=== PATIENT | female | born 1960 | race American Indian/Alaskan Native ===

== ENCOUNTER 2021-09-22 16:34 | Inpatient (IN) | payer MEDICAID ==
[2021-09-23 07:43] LABS: Basophils # (Auto) 0.1 K/mm3 (0.0-0.1); Basophils % (Auto) 0.8 % (0.0-1.8); Eosinophils # (Auto) 0.1 K/mm3 (0.0-0.4); Eosinophils % (Auto) 1.4 % (0.0-4.3); Hematocrit 42.2 % (30.3-42.9); Hemoglobin 13.5 gm/dl (10.1-14.3); Lymphocytes # (Auto) 2.4 K/mm3 (1.2-5.4); Lymphocytes % (Auto) 36.9 % (13.4-35.0); Mean Corpuscular HGB Conc 32 % (30-34); Mean Corpuscular Volume 84 fl (79-97); Monocytes # (Auto) 0.7 K/mm3 (0.0-0.8); Platelet Count 297 K/mm3 (140-440); Red Cell Distribution Width 16.2 % (13.2-15.2)
[2021-09-23 08:01] LABS: Alanine Aminotransferase 16 units/L (7-56); Blood Urea Nitrogen 21 mg/dL (7-17); Calcium 9.2 mg/dL (8.4-10.2); Chol/HDL Ratio 4.32 %; HDL Cholesterol 43 mg/dL (40-59); Hemolysis Index 0; LDL Cholesterol,Direct 113 mg/dL (50-130)
[2021-09-23 08:06] LABS: BUN/Creatinine Ratio 30
--- NOTE | 2021-09-23 09:30 | Consultation ---
History of Present Illness - Reason for Consult Consult date: 09/23/21 DM Requesting physician: MICHELA VILLARREAL - History of Present Illness Patient is a 61 year old female with past medical hx of DM, Heptatis C, HIV, Bipolar disorder, paranoid Schizophreania, admitted to our facility after presenting to an outside facility with suicidal ideation. On my examination, she denies any chest pain, nausea, vomiting, diarrhea, fever. she informs me that she is complaint with her medications and will like to go home. She did not elaborate with me on the suicidal ideation. No other issues reported by nursing staff. Past History Past Medical History: diabetes, hepatitis (C), hypertension, hyperlipidemia, other (AIDS) Past Surgical History: (X1 AND ) Social history: smoking, full code Family history: no significant family history Medications and Allergies Allergies Allergy/AdvReac Type Severity Reaction Status Date / Time fluphenazine [From Prolixin] Allergy Unknown Verified 09/23/21 03:50 haloperidol [From Haldol] Allergy Unknown Verified 09/23/21 03:50 metronidazole [From Flagyl] Allergy Unknown Verified 09/23/21 03:50 Penicillins Allergy Unknown Verified 09/23/21 03:50 Home Medications Medication Instructions Recorded Confirmed Last Taken Type ARIPiprazole [Abilify] 10 mg PO DAILY 09/23/21 09/23/21 Unknown History Aspirin EC [Halfprin EC] 81 mg PO QDAY 09/23/21 09/23/21 Unknown History amLODIPine 10 mg PO DAILY 09/23/21 09/23/21 Unknown History Review of Systems All systems: negative Constitutional: no weight loss, no weight gain, no fever, no sweats, no fatigue, no weakness, no malaise, no lethargy Cardiovascular: no orthopnea, no rapid/irregular heart beat, no syncope, no shortness of breath Respiratory: no cough with sputum, no excessive sputum, no shortness of breath, no dyspnea on exertion Gastrointestinal: no nausea, no vomiting, no diarrhea, no constipation, no hematochezia, no early satiety, no indigestion Musculoskeletal: no neck pain, no arm numbness/tingling, no low back pain, no leg numbness/tingling, no muscle weakness, no muscle cramps, no limitation of motion, no fractures Neurological: no transient paralysis, no tingling, no seizures, no change in speech, no confusion, no double vision, no loss of vision Psychiatric: no memory loss, no change in sleep habits, no insomnia, no hypersomnia, no suicidal ideation, no hopelessness, no anhedonia, no difficulties concentrating Endocrine: no heat intolerance, no excessive thirst, no polyuria, no flushing Allergic/Immunologic: no urticaria Exam - Constitutional General appearance: Present: no acute distress, well-nourished. Absent: mild distress, severe distress - EENT Eyes: Present: PERRL, EOM intact ENT: hearing intact, clear oral mucosa - Neck Neck: Present: supple, normal ROM - Respiratory Respiratory effort: normal Respiratory: bilateral: CTA - Cardiovascular Rhythm: regular Heart Sounds: Present: S1 & S2. Absent: systolic murmur - Extremities Extremities: no ischemia, pulses intact, pulses symmetrical, No edema, normal temperature, Full ROM - Abdominal General gastrointestinal: Present: soft, non-tender, non-distended, normal bowel sounds - Integumentary Integumentary: Present: clear, warm, dry - Musculoskeletal Musculoskeletal: strength equal bilaterally, right sided weakness - Psychiatric Psychiatric: appropriate mood/affect, intact judgment & insight, memory intact, cooperative - Neurologic Neurologic: CNII-XII intact, moves all extremities - Allied Health Allied health notes reviewed: nursing Results - Labs CBC & Chem 7: 09/23/21 07:09 09/23/21 07:09 Labs: Abnormal lab results 09/23/21 09/23/21 09/23/21 Range/Units 06:58 07:09 07:09 MCH 27 L (28-32) pg RDW 16.2 H (13.2-15.2) % Lymph % (Auto) 36.9 H (13.4-35.0) % [place] % (Auto) 10.0 H (0.0-7.3) % BUN 21 H (7-17) mg/dL Glucose 195 H (65-100) mg/dL POC Glucose 197 H (70-105) mg/dL Hemoglobin A1c (4-6) % Alkaline Phosphatase 153 H (35-129) units/L 09/23/21 Range/Units 07:09 MCH (28-32) pg RDW (13.2-15.2) % Lymph % (Auto) (13.4-35.0) % [place] % (Auto) (0.0-7.3) % BUN (7-17) mg/dL Glucose (65-100) mg/dL POC Glucose (70-105) mg/dL Hemoglobin A1c 8.4 H (4-6) % Alkaline Phosphatase (35-129) units/L Assessment and Plan Patient is a 61 year old female with past medical hx of DM, Heptatis C, HIV, Bipolar disorder, paranoid Schizophreania, admitted to our facility after prese nting to an outside facility with suicidal ideation. On my examination, she denies any chest pain, nausea, vomiting, diarrhea, fever. she informs me that she is complaint with her medications and will like to go home. She did not elaborate with me on the suicidal ideation. No other issues reported by nursing staff. DM Hepatitis C HIV/AIDS HTN TOBACCO USE Schizophrenia-Paranoid PLAN Continue supportive care Resume home meds ACCUCHECKS METFORMIN Discussed with Nursing staff to ensure resumption of the HIV/AIDS medications Counselling on Tobacco use discussed in detail for 15 mins, risk associated with Tobacco use discussed in detail and she verbalized understanding DVT/GI prophy
[2021-09-23] MEDS ORDERED: ABACAVIR PO SCH (11:00)
[2021-09-23] MEDS ORDERED: NON-FORMULARY EACH (Omeprazole [Omeprazole] 20 MG Capsule.Dr) PO SCH (11:00)
[2021-09-23] MEDS ORDERED: LAMIVUDI PO SCH (11:00)
[2021-09-23] MEDS ORDERED: DOLUTEGRAVIR PO SCH (11:00)
[2021-09-23] MEDS: ARIPiprazole 10 MG TAB PO SCH (11:18)
[2021-09-23] MEDS: PANTOPRAZOLE 40 MG TAB PO SCH (11:18)
[2021-09-23] MEDS: ASPIRIN EC 81 MG TAB PO SCH (11:18)
[2021-09-23] MEDS: amLODIPine 10 MG TAB PO SCH (11:18)
--- NOTE | 2021-09-23 13:36 | History and Physical Report ---
GP History & Physical - History of Present Illness Date of admission: 09/22/21 Date of Examination: 09/23/21 Reason for Admission: Danger to self, Failure of Outpatient Treatment, Severe anxiety/depression History of Present Illness: HPI: Patient went to ED with superficial cuts on her throat. She stated she was hearing voices to harm herself. The patient was seen today. She is a/o x 3. She says she was admitted to [facility]- psych because people were at her door trying to break in. The patient says "people thought I was hallucinating." She then says "I was hearing voices. But people were really trying to break in." The patient then says "I got frustrated and cut my neck." She shows me superficial cuts on the left side of her neck. She denies SI/HI at present. She says she has a history of Bipolar and Schizophrenia. The patient says she had Abilify Maintenna one week ago. She denies any illicit drug use at present and states the last time she had "crack was in May." PAST PSYCHIATRIC HISTORY: Diagnoses: bipolar and schizophrenia Suicide attempts or Self-harm behavior: Yes Prior psychiatric hospitalizations: Yes Substance Abuse history: Crack Previous psychiatric medications tried: Abilify Maintenna Outpatient treatment: Yes PAST MEDICAL HISTORY: None reported Family Psychiatric History: None reported SOCIAL HISTORY Marital Status: Single Living Arrangements: alone Employment Status: disabled Access to guns/weapons: Denies Education: high school History of Abuse: denies Legal History: denies REVIEW OF SYSTEMS Constitutional: Negative for weight loss ENT: Negative for stridor Respiratory: Negative for cough or hemoptysis All other systems reviewed and are negative MENTAL STATUS EXAMINATION General Appearance: Dressed appropriately Behavior: calm and cooperative Mood: depressed Affect and affective range: congruent with mood Thought Process: illogical Thought content: hallucinations Speech: Normal tone and pace Suicidal Ideation: Denies Homicidal Ideation: Denies Hallucinations: Auditory Delusions: None elicited Insight and Judgment: Limited insight and judgment Memory: Limited Attention: Distracted Orientation: Alert, oriented Assessment Schizophrenia Treatment Plan Patient admitted for inpatient psychiatric evaluation, medication adjustment and close monitoring The patient's behavior, mood, sleep and appetite will be closely monitored. Patient enrolled in individual and group therapeutic sessions and encouraged to attend. Patient provided with a safe and structured environment. Patient's physical health needs will be addressed by the Hospitalist. Hospitalist Consulted Labs including CBC, CMP, Lipid profile and Hemoglobin A1C levels ordered for baseline reference Social Assessment will be completed and the Communications Strategist will work with patient and family to ensure a suitable and safe disposition Medication adjustment will be made as clinically indicated Restarted home medications Usual Wellness Gnosticist/Preservation: - Start Trazodone 50 mg po QHS & 50 mg po QHS PRN between 10 PM & 2 AM for insomnia - Start Melatonin 5 mg po QHS to promote circadian rhythm The patient agreed on the treatment plan, understood the risk, benefit, alternative treatment, potential consequence of no treatment, and gave informed consent. Estimated days: 7 Post hospital care: primary care provider, psychiatric provider Case staffed with Dr. Vásquez Legal Status: Voluntary Reaction to Hospitalization: Accepting Medications and Allergies Allergies Allergy/AdvReac Type Severity Reaction Status Date / Time fluphenazine [From Prolixin] Allergy Unknown Verified 09/23/21 03:50 haloperidol [From Haldol] Allergy Unknown Verified 09/23/21 03:50 metronidazole [From Flagyl] Allergy Unknown Verified 09/23/21 03:50 Penicillins Allergy Unknown Verified 09/23/21 03:50 Home Medications Medication Instructions Recorded Confirmed Last Taken Type ARIPiprazole [Abilify] 10 mg PO DAILY 09/23/21 09/23/21 Unknown History Abacavir/Dolutegravir/Lamivudi 500 mg PO DAILY 09/23/21 09/23/21 Unknown History [Triumeq (Nf)] Aspirin EC [Halfprin EC] 81 mg PO QDAY 09/23/21 09/23/21 Unknown History AtorvaSTATin [Lipitor] 20 mg PO QHS 09/23/21 09/23/21 Unknown History Omeprazole 20 mg PO DAILY 09/23/21 09/23/21 Unknown History Pantoprazole [Protonix] 40 mg PO QDAY 09/23/21 09/23/21 Unknown History amLODIPine 10 mg PO DAILY 09/23/21 09/23/21 Unknown History traZODone [Desyrel] 100 mg PO QHS 09/23/21 09/23/21 Unknown History Active Meds: Active Medications Abacavir Sulfate (Abacavir 300 Mg Tab) 600 mg PO DAILY [facility] Amlodipine Besylate (Amlodipine 10 Mg Tab) 10 mg PO DAILY [facility] Last Admin: 09/23/21 11:18 Dose: 10 mg Aripiprazole (Aripiprazole 10 Mg Tab) 10 mg PO DAILY [facility] Last Admin: 09/23/21 11:18 Dose: 10 mg Aspirin (Aspirin Ec 81 Mg Tab) 81 mg PO QDAY [facility] Last Admin: 09/23/21 11:18 Dose: 81 mg Atorvastatin Calcium (Atorvastatin 20 Mg Tab) 20 mg PO QHS [facility] Dolutegravir Sodium (Dolutegravir 50 Mg Tab) 50 mg PO DAILY [facility] Lamivudine (Lamivudine 150 Mg Tab) 300 mg PO DAILY [facility] Metformin HCl (Metformin 500 Mg Tab) 500 mg PO BIDDIAB [facility] Pantoprazole Sodium (Pantoprazole 40 Mg Tab) 40 mg PO QDAY [facility] Last Admin: 09/23/21 11:18 Dose: 40 mg Trazodone HCl (Trazodone 100 Mg Tab) 100 mg PO QHS [facility] Results - Results Labs/Vitals: Laboratory Last Values WBC 6.5 K/mm3 (4.5-11.0) 09/23/21 07:09 RBC 5.00 M/mm3 (3.65-5.03) 09/23/21 07:09 Hgb 13.5 gm/dl (10.1-14.3) 09/23/21 07:09 Hct 42.2 % (30.3-42.9) 09/23/21 07:09 MCV 84 fl (79-97) 09/23/21 07:09 MCH 27 pg (28-32) L 09/23/21 07:09 MCHC 32 % (30-34) 09/23/21 07:09 RDW 16.2 % (13.2-15.2) H 09/23/21 07:09 Plt Count 297 K/mm3 (140-440) 09/23/21 07:09 Lymph % (Auto) 36.9 % (13.4-35.0) H 09/23/21 07:09 [place] % (Auto) 10.0 % (0.0-7.3) H 09/23/21 07:09 Eos % (Auto) 1.4 % (0.0-4.3) 09/23/21 07:09 Baso % (Auto) 0.8 % (0.0-1.8) 09/23/21 07:09 Lymph # (Auto) 2.4 K/mm3 (1.2-5.4) 09/23/21 07:09 [place] # (Auto) 0.7 K/mm3 (0.0-0.8) 09/23/21 07:09 Eos # (Auto) 0.1 K/mm3 (0.0-0.4) 09/23/21 07:09 Baso # (Auto) 0.1 K/mm3 (0.0-0.1) 09/23/21 07:09 Seg Neutrophils % 50.9 % (40.0-70.0) 09/23/21 07:09 Seg Neutrophils # 3.3 K/mm3 (1.8-7.7) 09/23/21 07:09 Sodium 138 mmol/L (137-145) 09/23/21 07:09 Potassium 4.5 mmol/L (3.6-5.0) 09/23/21 07:09 Chloride 104.4 mmol/L (98-107) 09/23/21 07:09 Carbon Dioxide 26 mmol/L (22-30) 09/23/21 07:09 Anion Gap 12 mmol/L 09/23/21 07:09 BUN 21 mg/dL (7-17) H 09/23/21 07:09 Creatinine 0.7 mg/dL (0.6-1.2) 09/23/21 07:09 Estimated GFR > 60 ml/min 09/23/21 07:09 BUN/Creatinine Ratio 30 % 09/23/21 07:09 Glucose 195 mg/dL (65-100) H 09/23/21 07:09 POC Glucose 176 mg/dL (70-105) H 09/23/21 11:41 Hemoglobin A1c 8.4 % (4-6) H 09/23/21 07:09 Calcium 9.2 mg/dL (8.4-10.2) 09/23/21 07:09 Total Bilirubin 0.30 mg/dL (0.1-1.2) 09/23/21 07:09 AST 14 units/L (5-40) 09/23/21 07:09 ALT 16 units/L (7-56) 09/23/21 07:09 Alkaline Phosphatase 153 units/L (35-129) H 09/23/21 07:09 Total Protein 7.6 g/dL (6.3-8.2) 09/23/21 07:09 Albumin 4.0 g/dL (3.9-5) 09/23/21 07:09 Albumin/Globulin Ratio 1.1 % 09/23/21 07:09 Triglycerides 146 mg/dL (2-149) 09/23/21 07:09 Cholesterol 186 mg/dL (50-199) 09/23/21 07:09 LDL Cholesterol Direct 113 mg/dL (50-130) 09/23/21 07:09 HDL Cholesterol 43 mg/dL (40-59) 09/23/21 07:09 Cholesterol/HDL Ratio 4.32 % 09/23/21 07:09 TSH 3.020 mlU/mL (0.270-4.200) 09/23/21 07:09 Last Vital Signs Temp 98.6 F 09/23/21 08:50 Pulse 63 09/23/21 11:18 Resp 16 09/23/21 08:50 BP 114/77 09/23/21 11:18 Pulse Ox 96 09/23/21 08:50 Physical Examination - Constitutional Vitals: Vital Signs Temp Pulse Resp BP Pulse Ox 98.6 F 63 16 114/77 96 09/23/21 08:50 09/23/21 11:18 09/23/21 08:50 09/23/21 11:18 09/23/21 08:50 Temperature -Last 24 Hours Temperature 98.6 F Mental Status Exam - Vital signs Last Vital Signs Temp 98.6 F 09/23/21 08:50 Pulse 63 09/23/21 11:18 Resp 16 09/23/21 08:50 BP 114/77 09/23/21 11:18 Pulse Ox 96 09/23/21 08:50 Physician Certification - Certification Statement Physician Certification Statement: This is an acknowledgement statement that ANA MARÍA VARGAS is a 61 year old F who requires inpatient psychiatric admission for treatment which could reasonably be expected to improve the patient's condition for Estimated period of time patient will need to remain in the hospital: [ ] Plan for post-hospital care: [ ]
[2021-09-23] MEDS: metFORMIN 500 MG TAB PO SCH (16:53)
[2021-09-23] MEDS ORDERED: lamiVUDine 50 MG/5 ML ORAL LIQD PO ONE (17:00)
[2021-09-23] MEDS: DOLUTEGRAVIR 50 MG TAB PO SCH (17:11)
[2021-09-23] MEDS: ABACAVIR 300 MG TAB PO SCH (17:12)
[2021-09-23] MEDS: traZODone 100 MG TAB PO SCH (22:54)
--- NOTE | 2021-09-24 06:50 | Progress Note ---
Assessment and Plan Assessment and plan: Patient is a 61 year old female with past medical hx of DM, Heptatis C, HIV, Bipolar disorder, paranoid Schizophreania, admitted to our facility after presenting to an outside facility with suicidal ideation. On my examination, she denies any chest pain, nausea, vomiting, diarrhea, fever. she informs me that she is complaint with her medications and will like to go home. She did not elaborate with me on the suicidal ideation. No other issues reported by nursing staff. DM Hepatitis C HIV/AIDS HTN TOBACCO USE Schizophrenia-Paranoid PLAN No change in medical management at this time Continue with plan as outlined by psychiatry Blood sugars are stable continue supportive care Resume home meds ACCUCHECKS METFORMIN Discussed with Nursing staff to ensure resumption of the HIV/AIDS medications Counselling on Tobacco use discussed in detail for 15 mins, risk associated with Tobacco use discussed in detail and she verbalized understanding DVT/GI prophy History Interval history: Patient seen and examined standing and brushing her hair. Does not show any acute distress. No overnight issues reported by nursing staff Hospitalist Physical - Physical exam Narrative exam: VITAL SIGNS: Reviewed. GENERAL: The patient appears normally developed, Vital signs as documented. HEAD: No signs of head trauma. EYES: Pupils are equal. Extraocular motions intact. EARS: Hearing grossly intact. MOUTH: Oropharynx is normal. NECK: No adenopathy, no JVD. CHEST: Chest with clear breath sounds bilaterally. No wheezes, rales, or rhonchi. CARDIAC: Regular rate and rhythm. S1 and S2, without murmurs, gallops, or rubs. VASCULAR: No Edema. Peripheral pulses normal and equal in all extremities. ABDOMEN: Soft, non tender and non distended. No rebound or guarding, and no masses palpated. Bowel Sounds normal. MUSCULOSKELETAL: Good range of motion of all major joints. Extremities without clubbing, cyanosis or edema. NEUROLOGIC EXAM: Alert and oriented x 3 No focal sensory or strength deficits. Speech normal. Follows commands. PSYCHIATRIC: Mood normal. SKIN: detail exam as documented in skin assessment - Constitutional Vitals: Temp Pulse Resp BP Pulse Ox 98.5 F 68 18 125/80 95 09/23/21 20:00 09/23/21 20:00 09/23/21 20:00 09/23/21 20:00 09/23/21 20:00 General appearance: Present: no acute distress, well-nourished. Absent: mild d istress, severe distress Results - Labs CBC & Chem 7: 09/23/21 07:09 09/23/21 07:09 Labs: Laboratory Last Values WBC 6.5 K/mm3 (4.5-11.0) 09/23/21 07:09 RBC 5.00 M/mm3 (3.65-5.03) 09/23/21 07:09 Hgb 13.5 gm/dl (10.1-14.3) 09/23/21 07:09 Hct 42.2 % (30.3-42.9) 09/23/21 07:09 MCV 84 fl (79-97) 09/23/21 07:09 MCH 27 pg (28-32) L 09/23/21 07:09 MCHC 32 % (30-34) 09/23/21 07:09 RDW 16.2 % (13.2-15.2) H 09/23/21 07:09 Plt Count 297 K/mm3 (140-440) 09/23/21 07:09 Lymph % (Auto) 36.9 % (13.4-35.0) H 09/23/21 07:09 [place] % (Auto) 10.0 % (0.0-7.3) H 09/23/21 07:09 Eos % (Auto) 1.4 % (0.0-4.3) 09/23/21 07:09 Baso % (Auto) 0.8 % (0.0-1.8) 09/23/21 07:09 Lymph # (Auto) 2.4 K/mm3 (1.2-5.4) 09/23/21 07:09 [place] # (Auto) 0.7 K/mm3 (0.0-0.8) 09/23/21 07:09 Eos # (Auto) 0.1 K/mm3 (0.0-0.4) 09/23/21 07:09 Baso # (Auto) 0.1 K/mm3 (0.0-0.1) 09/23/21 07:09 Seg Neutrophils % 50.9 % (40.0-70.0) 09/23/21 07:09 Seg Neutrophils # 3.3 K/mm3 (1.8-7.7) 09/23/21 07:09 Sodium 138 mmol/L (137-145) 09/23/21 07:09 Potassium 4.5 mmol/L (3.6-5.0) 09/23/21 07:09 Chloride 104.4 mmol/L (98-107) 09/23/21 07:09 Carbon Dioxide 26 mmol/L (22-30) 09/23/21 07:09 Anion Gap 12 mmol/L 09/23/21 07:09 BUN 21 mg/dL (7-17) H 09/23/21 07:09 Creatinine 0.7 mg/dL (0.6-1.2) 09/23/21 07:09 Estimated GFR > 60 ml/min 09/23/21 07:09 BUN/Creatinine Ratio 30 % 09/23/21 07:09 Glucose 195 mg/dL (65-100) H 09/23/21 07:09 POC Glucose 188 mg/dL (70-105) H 09/23/21 20:40 Hemoglobin A1c 8.4 % (4-6) H 09/23/21 07:09 Calcium 9.2 mg/dL (8.4-10.2) 09/23/21 07:09 Total Bilirubin 0.30 mg/dL (0.1-1.2) 09/23/21 07:09 AST 14 units/L (5-40) 09/23/21 07:09 ALT 16 units/L (7-56) 09/23/21 07:09 Alkaline Phosphatase 153 units/L (35-129) H 09/23/21 07:09 Total Protein 7.6 g/dL (6.3-8.2) 09/23/21 07:09 Albumin 4.0 g/dL (3.9-5) 09/23/21 07:09 Albumin/Globulin Ratio 1.1 % 09/23/21 07:09 Triglycerides 146 mg/dL (2-149) 09/23/21 07:09 Cholesterol 186 mg/dL (50-199) 09/23/21 07:09 LDL Cholesterol Direct 113 mg/dL (50-130) 09/23/21 07:09 HDL Cholesterol 43 mg/dL (40-59) 09/23/21 07:09 Cholesterol/HDL Ratio 4.32 % 09/23/21 07:09 TSH 3.020 mlU/mL (0.270-4.200) 09/23/21 07:09 Aguiar/IV: Voiding Method Toilet Active Medications - Current Medications Current Medications: Generic Name Dose Route Start Last Admin Trade Name Radha PRN Reason Stop Dose Admin Abacavir Sulfate 600 mg 09/23/21 14:00 09/23/21 17:12 Abacavir 300 Mg Tab PO 600 mg DAILY MALDONADO Administration Amlodipine Besylate 10 mg 09/23/21 11:00 09/23/21 11:18 Amlodipine 10 Mg Tab PO 10 mg DAILY [facility] Administration Aripiprazole 10 mg 09/23/21 11:00 09/23/21 11:18 Aripiprazole 10 Mg Tab PO 10 mg DAILY [facility] Administration Aspirin 81 mg 09/23/21 11:00 09/23/21 11:18 Aspirin Ec 81 Mg Tab PO 81 mg QDAY [facility] Administration Atorvastatin Calcium 20 mg 09/23/21 22:00 09/23/21 22:54 Atorvastatin 20 Mg Tab PO 20 mg QHS [facility] Administration Dolutegravir Sodium 50 mg 09/23/21 14:00 09/23/21 17:11 Dolutegravir 50 Mg Tab PO 50 mg DAILY [facility] Administration Lamivudine 300 mg 09/23/21 14:00 09/23/21 17:21 Lamivudine 150 Mg Tab PO Not Given DAILY [facility] Metformin HCl 500 mg 09/23/21 17:00 09/23/21 16:53 Metformin 500 Mg Tab PO 500 mg BIDDIAB [facility] Administration Pantoprazole Sodium 40 mg 09/23/21 11:00 09/23/21 11:18 Pantoprazole 40 Mg Tab PO 40 mg QDAY [facility] Administration Trazodone HCl 100 mg 09/23/21 22:00 09/23/21 22:54 Trazodone 100 Mg Tab PO 100 mg QHS [facility] Administration
[2021-09-24] MEDS: PANTOPRAZOLE 40 MG TAB PO SCH (10:14)
[2021-09-24] MEDS: metFORMIN 500 MG TAB PO SCH ×2 (10:46→23:51)
[2021-09-24] MEDS: amLODIPine 10 MG TAB PO SCH (10:46)
[2021-09-24] MEDS: ASPIRIN EC 81 MG TAB PO SCH (10:46)
[2021-09-24] MEDS: ARIPiprazole 10 MG TAB PO SCH (10:47)
[2021-09-24] MEDS: DOLUTEGRAVIR 50 MG TAB PO SCH (10:48)
--- NOTE | 2021-09-24 10:49 | Progress Note ---
Subjective Date of service: 09/24/21 Principal diagnosis: Schizophrenia Subjective Comment: The patient was seen today. She states to me that she is doing better, and feeling "blessed." She says "I'm ready to go home now." The patient denies SI/HI or hallucinations. However, staff has observed bizarre affect and delusions with this patient believing she is the president. Will increase abilify to treat delusions. REVIEW OF SYSTEMS Constitutional: Negative for weight loss ENT: Negative for stridor Respiratory: Negative for cough or hemoptysis All other systems reviewed and are negative MENTAL STATUS EXAMINATION General Appearance: Dressed appropriately Behavior: calm and cooperative Mood: depressed Affect and affective range: congruent with mood Thought Process: illogical Thought content: hallucinations Speech: Normal tone and pace Suicidal Ideation: Denies Homicidal Ideation: Denies Hallucinations: Auditory Delusions: None elicited Insight and Judgment: Limited insight and judgment Memory: Limited Attention: Distracted Orientation: Alert, oriented Assessment Schizophrenia Treatment Plan Patient admitted for inpatient psychiatric evaluation, medication adjustment and close monitoring The patient's behavior, mood, sleep and appetite will be closely monitored. Patient enrolled in individual and group therapeutic sessions and encouraged to attend. Patient provided with a safe and structured environment. Patient's physical health needs will be addressed by the Hospitalist. Hospitalist Consulted Labs including CBC, CMP, Lipid profile and Hemoglobin A1C levels ordered for baseline reference Social Assessment will be completed and the Wood Turning Lathe Operator will work with patient and family to ensure a suitable and safe disposition Medication adjustment will be made as clinically indicated Increase Abilify 15mg po daily Usual Wellness [facility]/Preservation: - Start Trazodone 50 mg po QHS & 50 mg po QHS PRN between 10 PM & 2 AM for insomnia - Start Melatonin 5 mg po QHS to promote circadian rhythm The patient agreed on the treatment plan, understood the risk, benefit, alternative treatment, potential consequence of no treatment, and gave informed consent. Estimated days: 7 Post hospital care: primary care provider, psychiatric provider Case staffed with Dr. Vásquez Medications and Allergies Allergies Allergy/AdvReac Type Severity Reaction Status Date / Time fluphenazine [From Prolixin] Allergy Unknown Verified 09/23/21 03:50 haloperidol [From Haldol] Allergy Unknown Verified 09/23/21 03:50 metronidazole [From Flagyl] Allergy Unknown Verified 09/23/21 03:50 Penicillins Allergy Unknown Verified 09/23/21 03:50 Home Medications Medication Instructions Recorded Confirmed Last Taken Type ARIPiprazole [Abilify] 10 mg PO DAILY 09/23/21 09/23/21 Unknown History Abacavir/Dolutegravir/Lamivudi 500 mg PO DAILY 09/23/21 09/23/21 Unknown History [Triumeq (Nf)] Aspirin EC [Halfprin EC] 81 mg PO QDAY 09/23/21 09/23/21 Unknown History AtorvaSTATin [Lipitor] 20 mg PO QHS 09/23/21 09/23/21 Unknown History Omeprazole 20 mg PO DAILY 09/23/21 09/23/21 Unknown History Pantoprazole [Protonix] 40 mg PO QDAY 09/23/21 09/23/21 Unknown History amLODIPine 10 mg PO DAILY 09/23/21 09/23/21 Unknown History traZODone [Desyrel] 100 mg PO QHS 09/23/21 09/23/21 Unknown History Active Meds: Active Medications Abacavir Sulfate (Abacavir 300 Mg Tab) 600 mg PO DAILY [facility] Last Admin: 09/23/21 17:12 Dose: 600 mg Amlodipine Besylate (Amlodipine 10 Mg Tab) 10 mg PO DAILY [facility] Last Admin: 09/23/21 11:18 Dose: 10 mg Aripiprazole (Aripiprazole 10 Mg Tab) 10 mg PO DAILY [facility] Last Admin: 09/23/21 11:18 Dose: 10 mg Aspirin (Aspirin Ec 81 Mg Tab) 81 mg PO QDAY [facility] Last Admin: 09/23/21 11:18 Dose: 81 mg Atorvastatin Calcium (Atorvastatin 20 Mg Tab) 20 mg PO QHS [facility] Last Admin: 09/23/21 22:54 Dose: 20 mg Dolutegravir Sodium (Dolutegravir 50 Mg Tab) 50 mg PO DAILY [facility] Last Admin: 09/23/21 17:11 Dose: 50 mg Lamivudine (Lamivudine 150 Mg Tab) 300 mg PO DAILY [facility] Last Admin: 09/23/21 17:21 Dose: Not Given Metformin HCl (Metformin 500 Mg Tab) 500 mg PO BIDDIAB [facility] Last Admin: 09/23/21 16:53 Dose: 500 mg Pantoprazole Sodium (Pantoprazole 40 Mg Tab) 40 mg PO QDAY [facility] Last Admin: 09/23/21 11:18 Dose: 40 mg Trazodone HCl (Trazodone 100 Mg Tab) 100 mg PO QHS [facility] Last Admin: 09/23/21 22:54 Dose: 100 mg Results - Results Labs/Vitals: Laboratory Last Values WBC 6.5 K/mm3 (4.5-11.0) 09/23/21 07:09 RBC 5.00 M/mm3 (3.65-5.03) 09/23/21 07:09 Hgb 13.5 gm/dl (10.1-14.3) 09/23/21 07:09 Hct 42.2 % (30.3-42.9) 09/23/21 07:09 MCV 84 fl (79-97) 09/23/21 07:09 MCH 27 pg (28-32) L 09/23/21 07:09 MCHC 32 % (30-34) 09/23/21 07:09 RDW 16.2 % (13.2-15.2) H 09/23/21 07:09 Plt Count 297 K/mm3 (140-440) 09/23/21 07:09 Lymph % (Auto) 36.9 % (13.4-35.0) H 09/23/21 07:09 [place] % (Auto) 10.0 % (0.0-7.3) H 09/23/21 07:09 Eos % (Auto) 1.4 % (0.0-4.3) 09/23/21 07:09 Baso % (Auto) 0.8 % (0.0-1.8) 09/23/21 07:09 Lymph # (Auto) 2.4 K/mm3 (1.2-5.4) 09/23/21 07:09 [place] # (Auto) 0.7 K/mm3 (0.0-0.8) 09/23/21 07:09 Eos # (Auto) 0.1 K/mm3 (0.0-0.4) 09/23/21 07:09 Baso # (Auto) 0.1 K/mm3 (0.0-0.1) 09/23/21 07:09 Seg Neutrophils % 50.9 % (40.0-70.0) 09/23/21 07:09 Seg Neutrophils # 3.3 K/mm3 (1.8-7.7) 09/23/21 07:09 Sodium 138 mmol/L (137-145) 09/23/21 07:09 Potassium 4.5 mmol/L (3.6-5.0) 09/23/21 07:09 Chloride 104.4 mmol/L (98-107) 09/23/21 07:09 Carbon Dioxide 26 mmol/L (22-30) 09/23/21 07:09 Anion Gap 12 mmol/L 09/23/21 07:09 BUN 21 mg/dL (7-17) H 09/23/21 07:09 Creatinine 0.7 mg/dL (0.6-1.2) 09/23/21 07:09 Estimated GFR > 60 ml/min 09/23/21 07:09 BUN/Creatinine Ratio 30 % 09/23/21 07:09 Glucose 195 mg/dL (65-100) H 09/23/21 07:09 POC Glucose 190 mg/dL (70-105) H 09/24/21 07:49 Hemoglobin A1c 8.4 % (4-6) H 09/23/21 07:09 Calcium 9.2 mg/dL (8.4-10.2) 09/23/21 07:09 Total Bilirubin 0.30 mg/dL (0.1-1.2) 09/23/21 07:09 AST 14 units/L (5-40) 09/23/21 07:09 ALT 16 units/L (7-56) 09/23/21 07:09 Alkaline Phosphatase 153 units/L (35-129) H 09/23/21 07:09 Total Protein 7.6 g/dL (6.3-8.2) 09/23/21 07:09 Albumin 4.0 g/dL (3.9-5) 09/23/21 07:09 Albumin/Globulin Ratio 1.1 % 09/23/21 07:09 Triglycerides 146 mg/dL (2-149) 09/23/21 07:09 Cholesterol 186 mg/dL (50-199) 09/23/21 07:09 LDL Cholesterol Direct 113 mg/dL (50-130) 09/23/21 07:09 HDL Cholesterol 43 mg/dL (40-59) 09/23/21 07:09 Cholesterol/HDL Ratio 4.32 % 09/23/21 07:09 TSH 3.020 mlU/mL (0.270-4.200) 09/23/21 07:09 Last Vital Signs Temp 98.5 F 09/23/21 20:00 Pulse 68 09/23/21 20:00 Resp 18 09/23/21 20:00 BP 125/80 09/23/21 20:00 Pulse Ox 95 09/23/21 20:00
[2021-09-24] MEDS: ABACAVIR 300 MG TAB PO SCH (15:52)
[2021-09-24] MEDS: BENZTROPINE 0.5 MG TAB PO SCH ×2 (15:54→21:13)
[2021-09-24] MEDS: ARIPiprazole 15 MG TAB PO SCH (15:55)
[2021-09-24] MEDS: traZODone 100 MG TAB PO SCH (22:35)
--- NOTE | 2021-09-25 07:15 | Progress Note ---
Assessment and Plan Assessment and plan: Patient is a 61 year old female with past medical hx of DM, Heptatis C, HIV, Bipolar disorder, paranoid Schizophreania, admitted to our facility after presenting to an outside facility with suicidal ideation. On my examination, she denies any chest pain, nausea, vomiting, diarrhea, fever. she informs me that she is complaint with her medications and will like to go home. She did not elaborate with me on the suicidal ideation. No other issues reported by nursing staff. DM Hepatitis C HIV/AIDS HTN TOBACCO USE Schizophrenia-Paranoid Right wrist nodule PLAN Recommend outpatient evaluation of the right wrist nodule. May require imaging study or some form of a biopsy. Patient states is nontender. And he has been present for a few weeks. No change in medical management at this time Continue with plan as outlined by psychiatry Blood sugars are stable continue supportive care Resume home meds ACCUCHECKS METFORMIN Discussed with Nursing staff to ensure resumption of the HIV/AIDS medications Counselling on Tobacco use discussed in detail for 15 mins, risk associated with Tobacco use discussed in detail and she verbalized understanding DVT/GI prophy History Interval history: Patient seen and examined in the day room. Noted a lump on the wrist of the right upper extremity. Hospitalist Physical - Physical exam Narrative exam: VITAL SIGNS: Reviewed. GENERAL: The patient appears normally developed, Vital signs as documented. HEAD: No signs of head trauma. EYES: Pupils are equal. Extraocular motions intact. EARS: Hearing grossly intact. MOUTH: Oropharynx is normal. NECK: No adenopathy, no JVD. CHEST: Chest with clear breath sounds bilaterally. No wheezes, rales, or rhonchi. CARDIAC: Regular rate and rhythm. S1 and S2, without murmurs, gallops, or rubs. VASCULAR: No Edema. Peripheral pulses normal and equal in all extremities. ABDOMEN: Soft, non tender and non distended. No rebound or guarding, and no masses palpated. Bowel Sounds normal. MUSCULOSKELETAL: Soft nodule right dorsum area of the wrist good range of motion of all major joints. Extremities without clubbing, cyanosis or edema. NEUROLOGIC EXAM: Alert and oriented x 3 No focal sensory or strength deficits. Speech normal. Follows commands. PSYCHIATRIC: Mood normal. SKIN: detail exam as documented in skin assessment - Constitutional Vitals: Temp Pulse Resp BP Pulse Ox 97.4 F L 67 18 140/82 100 09/24/21 22:00 09/24/21 22:00 09/24/21 22:00 09/24/21 22:00 09/24/21 22:00 General appearance: Present: no acute distress, well-nourished. Absent: mild distress, severe distress Results - Labs CBC & Chem 7: 09/23/21 07:09 09/23/21 07:09 Labs: Laboratory Last Values WBC 6.5 K/mm3 (4.5-11.0) 09/23/21 07:09 RBC 5.00 M/mm3 (3.65-5.03) 09/23/21 07:09 Hgb 13.5 gm/dl (10.1-14.3) 09/23/21 07:09 Hct 42.2 % (30.3-42.9) 09/23/21 07:09 MCV 84 fl (79-97) 09/23/21 07:09 MCH 27 pg (28-32) L 09/23/21 07:09 MCHC 32 % (30-34) 09/23/21 07:09 RDW 16.2 % (13.2-15.2) H 09/23/21 07:09 Plt Count 297 K/mm3 (140-440) 09/23/21 07:09 Lymph % (Auto) 36.9 % (13.4-35.0) H 09/23/21 07:09 [place] % (Auto) 10.0 % (0.0-7.3) H 09/23/21 07:09 Eos % (Auto) 1.4 % (0.0-4.3) 09/23/21 07:09 Baso % (Auto) 0.8 % (0.0-1.8) 09/23/21 07:09 Lymph # (Auto) 2.4 K/mm3 (1.2-5.4) 09/23/21 07:09 [place] # (Auto) 0.7 K/mm3 (0.0-0.8) 09/23/21 07:09 Eos # (Auto) 0.1 K/mm3 (0.0-0.4) 09/23/21 07:09 Baso # (Auto) 0.1 K/mm3 (0.0-0.1) 09/23/21 07:09 Seg Neutrophils % 50.9 % (40.0-70.0) 09/23/21 07:09 Seg Neutrophils # 3.3 K/mm3 (1.8-7.7) 09/23/21 07:09 Sodium 138 mmol/L (137-145) 09/23/21 07:09 Potassium 4.5 mmol/L (3.6-5.0) 09/23/21 07:09 Chloride 104.4 mmol/L (98-107) 09/23/21 07:09 Carbon Dioxide 26 mmol/L (22-30) 09/23/21 07:09 Anion Gap 12 mmol/L 09/23/21 07:09 BUN 21 mg/dL (7-17) H 09/23/21 07:09 Creatinine 0.7 mg/dL (0.6-1.2) 09/23/21 07:09 Estimated GFR > 60 ml/min 09/23/21 07:09 BUN/Creatinine Ratio 30 % 09/23/21 07:09 Glucose 195 mg/dL (65-100) H 09/23/21 07:09 POC Glucose 207 mg/dL (70-105) H 09/25/21 06:11 Hemoglobin A1c 8.4 % (4-6) H 09/23/21 07:09 Calcium 9.2 mg/dL (8.4-10.2) 09/23/21 07:09 Total Bilirubin 0.30 mg/dL (0.1-1.2) 09/23/21 07:09 AST 14 units/L (5-40) 09/23/21 07:09 ALT 16 units/L (7-56) 09/23/21 07:09 Alkaline Phosphatase 153 units/L (35-129) H 09/23/21 07:09 Total Protein 7.6 g/dL (6.3-8.2) 09/23/21 07:09 Albumin 4.0 g/dL (3.9-5) 09/23/21 07:09 Albumin/Globulin Ratio 1.1 % 09/23/21 07:09 Triglycerides 146 mg/dL (2-149) 09/23/21 07:09 Cholesterol 186 mg/dL (50-199) 09/23/21 07:09 LDL Cholesterol Direct 113 mg/dL (50-130) 09/23/21 07:09 HDL Cholesterol 43 mg/dL (40-59) 09/23/21 07:09 Cholesterol/HDL Ratio 4.32 % 09/23/21 07:09 TSH 3.020 mlU/mL (0.270-4.200) 09/23/21 07:09 [place]/IV: Voiding Method Toilet Active Medications - Current Medications Current Medications: Generic Name Dose Route Start Last Admin Trade Name Freq PRN Reason Stop Dose Admin Abacavir Sulfate 600 mg 09/23/21 14:00 09/24/21 15:52 Abacavir 300 Mg Tab PO 600 mg DAILY [facility] Administration Amlodipine Besylate 10 mg 09/23/21 11:00 09/24/21 10:46 Amlodipine 10 Mg Tab PO 10 mg DAILY [facility] Administration Aripiprazole 15 mg 09/24/21 11:30 09/24/21 15:55 Aripiprazole 15 Mg Tab PO 15 mg QDAY [facility] Administration Aspirin 81 mg 09/23/21 11:00 09/24/21 10:46 Aspirin Ec 81 Mg Tab PO 81 mg QDAY [facility] Administration Atorvastatin Calcium 20 mg 09/23/21 22:00 09/24/21 21:12 Atorvastatin 20 Mg Tab PO 20 mg QHS [facility] Administration Benztropine Mesylate 0.5 mg 09/24/21 11:00 09/24/21 21:13 Benztropine 0.5 Mg Tab PO 0.5 mg BID [facility] Administration Dolutegravir Sodium 50 mg 09/23/21 14:00 09/24/21 10:48 Dolutegravir 50 Mg Tab PO 50 mg DAILY [facility] Administration Lamivudine 300 mg 09/23/21 14:00 09/24/21 15:51 Lamivudine 150 Mg Tab PO 300 mg DAILY [facility] Administration Metformin HCl 500 mg 09/23/21 17:00 09/24/21 23:51 Metformin 500 Mg Tab PO Not Given BIDDIAB [facility] Pantoprazole Sodium 40 mg 09/23/21 11:00 09/24/21 10:14 Pantoprazole 40 Mg Tab PO 40 mg QDAY [facility] Administration Trazodone HCl 100 mg 09/23/21 22:00 09/24/21 22:35 Trazodone 100 Mg Tab PO Not Given QHS [facility]
--- NOTE | 2021-09-25 08:48 | Progress Note ---
Subjective Date of service: 09/25/21 Principal diagnosis: Schizophrenia Subjective Comment: The patient was seen today. She says she's feeling better and "blessed." She denies SI/HI or hallucinations. She is expressing feeling ready to go home. The patient will discharge once her outpatient resources are in place to ensure continuity of her mental wellness. REVIEW OF SYSTEMS Constitutional: Negative for weight loss ENT: Negative for stridor Respiratory: Negative for cough or hemoptysis All other systems reviewed and are negative MENTAL STATUS EXAMINATION General Appearance: Dressed appropriately Behavior: calm and cooperative Mood: depressed Affect and affective range: congruent with mood Thought Process: illogical Thought content: hallucinations Speech: Normal tone and pace Suicidal Ideation: Denies Homicidal Ideation: Denies Hallucinations: Auditory Delusions: None elicited Insight and Judgment: Limited insight and judgment Memory: Limited Attention: Distracted Orientation: Alert, oriented Assessment Schizophrenia Treatment Plan Patient admitted for inpatient psychiatric evaluation, medication adjustment and close monitoring The patient's behavior, mood, sleep and appetite will be closely monitored. Patient enrolled in individual and group therapeutic sessions and encouraged to attend. Patient provided with a safe and structured environment. Patient's physical health needs will be addressed by the Hospitalist. Hospitalist Consulted Labs including CBC, CMP, Lipid profile and Hemoglobin A1C levels ordered for baseline reference Social Assessment will be completed and the Liquor Gallery Operator will work with patient and family to ensure a suitable and safe disposition Medication adjustment will be made as clinically indicated Increase Abilify 15mg po daily yesterday No changes made today Usual Wellness [facility]/Preservation: - Start Trazodone 50 mg po QHS & 50 mg po QHS PRN between 10 PM & 2 AM for insomnia - Start Melatonin 5 mg po QHS to promote circadian rhythm The patient agreed on the treatment plan, understood the risk, benefit, alternative treatment, potential consequence of no treatment, and gave informed consent. Estimated days: 7 Post hospital care: primary care provider, psychiatric provider Case staffed with Dr. Vásquez Medications and Allergies Allergies Allergy/AdvReac Type Severity Reaction Status Date / Time fluphenazine [From Prolixin] Allergy Unknown Verified 09/23/21 03:50 haloperidol [From Haldol] Allergy Unknown Verified 09/23/21 03:50 metronidazole [From Flagyl] Allergy Unknown Verified 09/23/21 03:50 Penicillins Allergy Unknown Verified 09/23/21 03:50 Home Medications Medication Instructions Recorded Confirmed Last Taken Type ARIPiprazole [Abilify] 10 mg PO DAILY 09/23/21 09/23/21 Unknown History Abacavir/Dolutegravir/Lamivudi 500 mg PO DAILY 09/23/21 09/23/21 Unknown History [Triumeq (Nf)] Aspirin EC [Halfprin EC] 81 mg PO QDAY 09/23/21 09/23/21 Unknown History AtorvaSTATin [Lipitor] 20 mg PO QHS 09/23/21 09/23/21 Unknown History Omeprazole 20 mg PO DAILY 09/23/21 09/23/21 Unknown History Pantoprazole [Protonix] 40 mg PO QDAY 09/23/21 09/23/21 Unknown History amLODIPine 10 mg PO DAILY 09/23/21 09/23/21 Unknown History traZODone [Desyrel] 100 mg PO QHS 09/23/21 09/23/21 Unknown History Active Meds: Active Medications Abacavir Sulfate (Abacavir 300 Mg Tab) 600 mg PO DAILY [facility] Last Admin: 09/24/21 15:52 Dose: 600 mg Amlodipine Besylate (Amlodipine 10 Mg Tab) 10 mg PO DAILY [facility] Last Admin: 09/24/21 10:46 Dose: 10 mg Aripiprazole (Aripiprazole 15 Mg Tab) 15 mg PO QDAY [facility] Last Admin: 09/24/21 15:55 Dose: 15 mg Aspirin (Aspirin Ec 81 Mg Tab) 81 mg PO QDAY [facility] Last Admin: 09/24/21 10:46 Dose: 81 mg Atorvastatin Calcium (Atorvastatin 20 Mg Tab) 20 mg PO QHS [facility] Last Admin: 09/24/21 21:12 Dose: 20 mg Benztropine Mesylate (Benztropine 0.5 Mg Tab) 0.5 mg PO BID [facility] Last Admin: 09/24/21 21:13 Dose: 0.5 mg Dolutegravir Sodium (Dolutegravir 50 Mg Tab) 50 mg PO DAILY [facility] Last Admin: 09/24/21 10:48 Dose: 50 mg Lamivudine (Lamivudine 150 Mg Tab) 300 mg PO DAILY [facility] Last Admin: 09/24/21 15:51 Dose: 300 mg Metformin HCl (Metformin 500 Mg Tab) 500 mg PO BIDDIAB [facility] Last Admin: 09/24/21 23:51 Dose: Not Given Pantoprazole Sodium (Pantoprazole 40 Mg Tab) 40 mg PO QDAY [facility] Last Admin: 09/24/21 10:14 Dose: 40 mg Trazodone HCl (Trazodone 100 Mg Tab) 100 mg PO QHS [facility] Last Admin: 09/24/21 22:35 Dose: Not Given Results - Results Labs/Vitals: Laboratory Last Values WBC 6.5 K/mm3 (4.5-11.0) 09/23/21 07:09 RBC 5.00 M/mm3 (3.65-5.03) 09/23/21 07:09 Hgb 13.5 gm/dl (10.1-14.3) 09/23/21 07:09 Hct 42.2 % (30.3-42.9) 09/23/21 07:09 MCV 84 fl (79-97) 09/23/21 07:09 MCH 27 pg (28-32) L 09/23/21 07:09 MCHC 32 % (30-34) 09/23/21 07:09 RDW 16.2 % (13.2-15.2) H 09/23/21 07:09 Plt Count 297 K/mm3 (140-440) 09/23/21 07:09 Lymph % (Auto) 36.9 % (13.4-35.0) H 09/23/21 07:09 [place] % (Auto) 10.0 % (0.0-7.3) H 09/23/21 07:09 Eos % (Auto) 1.4 % (0.0-4.3) 09/23/21 07:09 Baso % (Auto) 0.8 % (0.0-1.8) 09/23/21 07:09 Lymph # (Auto) 2.4 K/mm3 (1.2-5.4) 09/23/21 07:09 [place] # (Auto) 0.7 K/mm3 (0.0-0.8) 09/23/21 07:09 Eos # (Auto) 0.1 K/mm3 (0.0-0.4) 09/23/21 07:09 Baso # (Auto) 0.1 K/mm3 (0.0-0.1) 09/23/21 07:09 Seg Neutrophils % 50.9 % (40.0-70.0) 09/23/21 07:09 Seg Neutrophils # 3.3 K/mm3 (1.8-7.7) 09/23/21 07:09 Sodium 138 mmol/L (137-145) 09/23/21 07:09 Potassium 4.5 mmol/L (3.6-5.0) 09/23/21 07:09 Chloride 104.4 mmol/L (98-107) 09/23/21 07:09 Carbon Dioxide 26 mmol/L (22-30) 09/23/21 07:09 Anion Gap 12 mmol/L 09/23/21 07:09 BUN 21 mg/dL (7-17) H 09/23/21 07:09 Creatinine 0.7 mg/dL (0.6-1.2) 09/23/21 07:09 Estimated GFR > 60 ml/min 09/23/21 07:09 BUN/Creatinine Ratio 30 % 09/23/21 07:09 Glucose 195 mg/dL (65-100) H 09/23/21 07:09 POC Glucose 207 mg/dL (70-105) H 09/25/21 06:11 Hemoglobin A1c 8.4 % (4-6) H 09/23/21 07:09 Calcium 9.2 mg/dL (8.4-10.2) 09/23/21 07:09 Total Bilirubin 0.30 mg/dL (0.1-1.2) 09/23/21 07:09 AST 14 units/L (5-40) 09/23/21 07:09 ALT 16 units/L (7-56) 09/23/21 07:09 Alkaline Phosphatase 153 units/L (35-129) H 09/23/21 07:09 Total Protein 7.6 g/dL (6.3-8.2) 09/23/21 07:09 Albumin 4.0 g/dL (3.9-5) 09/23/21 07:09 Albumin/Globulin Ratio 1.1 % 09/23/21 07:09 Triglycerides 146 mg/dL (2-149) 09/23/21 07:09 Cholesterol 186 mg/dL (50-199) 09/23/21 07:09 LDL Cholesterol Direct 113 mg/dL (50-130) 09/23/21 07:09 HDL Cholesterol 43 mg/dL (40-59) 09/23/21 07:09 Cholesterol/HDL Ratio 4.32 % 09/23/21 07:09 TSH 3.020 mlU/mL (0.270-4.200) 09/23/21 07:09 Last Vital Signs Temp 98.3 F 09/25/21 07:32 Pulse 57 L 09/25/21 07:32 Resp 16 09/25/21 07:32 BP 129/83 09/25/21 07:32 Pulse Ox 99 09/25/21 07:32
[2021-09-25] MEDS: amLODIPine 10 MG TAB PO SCH (10:02)
[2021-09-25] MEDS: ASPIRIN EC 81 MG TAB PO SCH (10:02)
[2021-09-25] MEDS: PANTOPRAZOLE 40 MG TAB PO SCH (10:03)
[2021-09-25] MEDS: ARIPiprazole 15 MG TAB PO SCH (10:03)
[2021-09-25] MEDS: DOLUTEGRAVIR 50 MG TAB PO SCH (10:03)
[2021-09-25] MEDS: ABACAVIR 300 MG TAB PO SCH (10:03)
[2021-09-25] MEDS: BENZTROPINE 0.5 MG TAB PO SCH ×2 (10:03→21:10)
[2021-09-25] MEDS: metFORMIN 500 MG TAB PO SCH ×2 (10:03→17:41)
[2021-09-25] MEDS: traZODone 100 MG TAB PO SCH (21:11)
--- NOTE | 2021-09-26 07:03 | Progress Note ---
Assessment and Plan Assessment and plan: Patient is a 61 year old female with past medical hx of DM, Heptatis C, HIV, Bipolar disorder, paranoid Schizophreania, admitted to our facility after presenting to an outside facility with suicidal ideation. On my examination, she denies any chest pain, nausea, vomiting, diarrhea, fever. she informs me that she is complaint with her medications and will like to go home. She did not elaborate with me on the suicidal ideation. No other issues reported by nursing staff. DM Hepatitis C HIV/AIDS HTN TOBACCO USE Schizophrenia-Paranoid Right wrist nodule PLAN No change in management from medical standpoint Recommend outpatient evaluation of the right wrist nodule. May require imaging study or some form of a biopsy. Patient states is nontender and none mobile. And he has been present for a few weeks. No change in medical management at this time Continue with plan as outlined by psychiatry Blood sugars are stable continue supportive care Resume home meds ACCUCHECKS METFORMIN Discussed with Nursing staff to ensure resumption of the HIV/AIDS medications Counselling on Tobacco use discussed in detail for 15 mins, risk associated with Tobacco use discussed in detail and she verbalized understanding DVT/GI prophy History Interval history: Patient seen and examined in the day room. Thinks lump is getting bigger but when looked at on the same frame as yesterday appears the same Hospitalist Physical - Physical exam Narrative exam: VITAL SIGNS: Reviewed. GENERAL: The patient appears normally developed, Vital signs as documented. HEAD: No signs of head trauma. EYES: Pupils are equal. Extraocular motions intact. EARS: Hearing grossly intact. MOUTH: Oropharynx is normal. NECK: No adenopathy, no JVD. CHEST: Chest with clear breath sounds bilaterally. No wheezes, rales, or rhonchi. CARDIAC: Regular rate and rhythm. S1 and S2, without murmurs, gallops, or rubs. VASCULAR: No Edema. Peripheral pulses normal and equal in all extremities. ABDOMEN: Soft, non tender and non distended. No rebound or guarding, and no masses palpated. Bowel Sounds normal. MUSCULOSKELETAL: Soft nodule right dorsum area of the wrist good range of motion of all major joints. Extremities without clubbing, cyanosis or edema. NEUROLOGIC EXAM: Alert and oriented x 3 No focal sensory or strength deficits. Speech normal. Follows commands. PSYCHIATRIC: Mood normal. SKIN: detail exam as documented in skin assessment - Constitutional Vitals: Temp Pulse Resp BP Pulse Ox 98.6 F 62 17 138/89 99 09/25/21 19:37 09/25/21 19:37 09/25/21 19:37 09/25/21 19:37 09/25/21 19:37 General appearance: Present: no acute distress, well-nourished. Absent: mild distress, severe distress Results - Labs CBC & Chem 7: 09/23/21 07:09 09/23/21 07:09 Labs: Laboratory Last Values WBC 6.5 K/mm3 (4.5-11.0) 09/23/21 07:09 RBC 5.00 M/mm3 (3.65-5.03) 09/23/21 07:09 Hgb 13.5 gm/dl (10.1-14.3) 09/23/21 07:09 Hct 42.2 % (30.3-42.9) 09/23/21 07:09 MCV 84 fl (79-97) 09/23/21 07:09 MCH 27 pg (28-32) L 09/23/21 07:09 MCHC 32 % (30-34) 09/23/21 07:09 RDW 16.2 % (13.2-15.2) H 09/23/21 07:09 Plt Count 297 K/mm3 (140-440) 09/23/21 07:09 Lymph % (Auto) 36.9 % (13.4-35.0) H 09/23/21 07:09 [place] % (Auto) 10.0 % (0.0-7.3) H 09/23/21 07:09 Eos % (Auto) 1.4 % (0.0-4.3) 09/23/21 07:09 Baso % (Auto) 0.8 % (0.0-1.8) 09/23/21 07:09 Lymph # (Auto) 2.4 K/mm3 (1.2-5.4) 09/23/21 07:09 [place] # (Auto) 0.7 K/mm3 (0.0-0.8) 09/23/21 07:09 Eos # (Auto) 0.1 K/mm3 (0.0-0.4) 09/23/21 07:09 Baso # (Auto) 0.1 K/mm3 (0.0-0.1) 09/23/21 07:09 Seg Neutrophils % 50.9 % (40.0-70.0) 09/23/21 07:09 Seg Neutrophils # 3.3 K/mm3 (1.8-7.7) 09/23/21 07:09 Sodium 138 mmol/L (137-145) 09/23/21 07:09 Potassium 4.5 mmol/L (3.6-5.0) 09/23/21 07:09 Chloride 104.4 mmol/L (98-107) 09/23/21 07:09 Carbon Dioxide 26 mmol/L (22-30) 09/23/21 07:09 Anion Gap 12 mmol/L 09/23/21 07:09 BUN 21 mg/dL (7-17) H 09/23/21 07:09 Creatinine 0.7 mg/dL (0.6-1.2) 09/23/21 07:09 Estimated GFR > 60 ml/min 09/23/21 07:09 BUN/Creatinine Ratio 30 % 09/23/21 07:09 Glucose 195 mg/dL (65-100) H 09/23/21 07:09 POC Glucose 163 mg/dL (70-105) H 09/25/21 20:25 Hemoglobin A1c 8.4 % (4-6) H 09/23/21 07:09 Calcium 9.2 mg/dL (8.4-10.2) 09/23/21 07:09 Total Bilirubin 0.30 mg/dL (0.1-1.2) 09/23/21 07:09 AST 14 units/L (5-40) 09/23/21 07:09 ALT 16 units/L (7-56) 09/23/21 07:09 Alkaline Phosphatase 153 units/L (35-129) H 09/23/21 07:09 Total Protein 7.6 g/dL (6.3-8.2) 09/23/21 07:09 Albumin 4.0 g/dL (3.9-5) 09/23/21 07:09 Albumin/Globulin Ratio 1.1 % 09/23/21 07:09 Triglycerides 146 mg/dL (2-149) 09/23/21 07:09 Cholesterol 186 mg/dL (50-199) 09/23/21 07:09 LDL Cholesterol Direct 113 mg/dL (50-130) 09/23/21 07:09 HDL Cholesterol 43 mg/dL (40-59) 09/23/21 07:09 Cholesterol/HDL Ratio 4.32 % 09/23/21 07:09 TSH 3.020 mlU/mL (0.270-4.200) 09/23/21 07:09 Aguiar/IV: Voiding Method Toilet Active Medications - Current Medications Current Medications: Generic Name Dose Route Start Last Admin Trade Name Radha PRN Reason Stop Dose Admin Abacavir Sulfate 600 mg 09/23/21 14:00 09/25/21 10:03 Abacavir 300 Mg Tab PO 600 mg DAILY MALDONADO Administration Amlodipine Besylate 10 mg 09/23/21 11:00 09/25/21 10:02 Amlodipine 10 Mg Tab PO 10 mg DAILY MALDONADO Administration Aripiprazole 15 mg 09/24/21 11:30 09/25/21 10:03 Aripiprazole 15 Mg Tab PO 15 mg QDAY MALDONADO Administration Aspirin 81 mg 09/23/21 11:00 09/25/21 10:02 Aspirin Ec 81 Mg Tab PO 81 mg QDAY [facility]DONADO Administration Atorvastatin Calcium 20 mg 09/23/21 22:00 09/25/21 21:10 Atorvastatin 20 Mg Tab PO 20 mg QHS [facility]DONADO Administration Benztropine Mesylate 0.5 mg 09/24/21 11:00 09/25/21 21:10 Benztropine 0.5 Mg Tab PO 0.5 mg BID [facility]DONADO Administration Dolutegravir Sodium 50 mg 09/23/21 14:00 09/25/21 10:03 Dolutegravir 50 Mg Tab PO 50 mg DAILY [facility] Administration Lamivudine 300 mg 09/23/21 14:00 09/25/21 10:03 Lamivudine 150 Mg Tab PO 300 mg DAILY [facility] Administration Metformin HCl 500 mg 09/23/21 17:00 09/25/21 17:41 Metformin 500 Mg Tab PO 500 mg BIDDIAB [facility]DONADO Administration Pantoprazole Sodium 40 mg 09/23/21 11:00 09/25/21 10:03 Pantoprazole 40 Mg Tab PO 40 mg QDAY [facility]DONADO Administration Trazodone HCl 100 mg 09/23/21 22:00 09/25/21 21:11 Trazodone 100 Mg Tab PO Not Given QHS MALDONADO
--- NOTE | 2021-09-26 08:40 | Progress Note ---
Subjective Date of service: 09/26/21 Principal diagnosis: Schizophrenia Subjective Comment: 09/26:The patient was seen today. She reports doing well and mood is good. She is focused on discharge. She denies SI/HI and denies hallucinations. No changes made today 09/25: The patient was seen today. She says she's feeling better and "blessed." She denies SI/HI or hallucinations. She is expressing feeling ready to go home. The patient will discharge once her outpatient resources are in place to ensure continuity of her mental wellness. REVIEW OF SYSTEMS Constitutional: Negative for weight loss ENT: Negative for stridor Respiratory: Negative for cough or hemoptysis All other systems reviewed and are negative MENTAL STATUS EXAMINATION General Appearance: Dressed appropriately Behavior: calm and cooperative Mood: Ok Affect and affective range: congruent with mood Thought Process: logical Thought content: Reality oriented Speech: Normal tone and pace Suicidal Ideation: Denies Homicidal Ideation: Denies Hallucinations: Denies Delusions: None elicited Insight and Judgment: Limited insight and judgment Memory: Limited Attention: Distracted Orientation: Alert, oriented Assessment Schizophrenia Treatment Plan Patient admitted for inpatient psychiatric evaluation, medication adjustment and close monitoring The patient's behavior, mood, sleep and appetite will be closely monitored. Patient enrolled in individual and group therapeutic sessions and encouraged to attend. Patient provided with a safe and structured environment. Patient's physical health needs will be addressed by the Hospitalist. Hospitalist Consulted Labs including CBC, CMP, Lipid profile and Hemoglobin A1C levels ordered for baseline reference Social Assessment will be completed and the Lead Solutions Architect will work with patient and family to ensure a suitable and safe disposition Medication adjustment will be made as clinically indicated Continue Abilify 15mg po daily. No changes made today Usual Wellness Advent/Preservation: - Start Trazodone 50 mg po QHS & 50 mg po QHS PRN between 10 PM & 2 AM for insomnia - Start Melatonin 5 mg po QHS to promote circadian rhythm The patient agreed on the treatment plan, understood the risk, benefit, alternative treatment, potential consequence of no treatment, and gave informed consent. Estimated days 4 Post hospital care: primary care provider, psychiatric provider Case staffed with Dr. Vásquez Medications and Allergies Medications and Allergies Allergies Allergy/AdvReac Type Severity Reaction Status Date / Time fluphenazine [From Prolixin] Allergy Unknown Verified 09/23/21 03:50 haloperidol [From Haldol] Allergy Unknown Verified 09/23/21 03:50 metronidazole [From Flagyl] Allergy Unknown Verified 09/23/21 03:50 Penicillins Allergy Unknown Verified 09/23/21 03:50 Home Medications Medication Instructions Recorded Confirmed Last Taken Type ARIPiprazole [Abilify] 10 mg PO DAILY 09/23/21 09/23/21 Unknown History Abacavir/Dolutegravir/Lamivudi 500 mg PO DAILY 09/23/21 09/23/21 Unknown History [Triumeq (Nf)] Aspirin EC [Halfprin EC] 81 mg PO QDAY 09/23/21 09/23/21 Unknown History AtorvaSTATin [Lipitor] 20 mg PO QHS 09/23/21 09/23/21 Unknown History Omeprazole 20 mg PO DAILY 09/23/21 09/23/21 Unknown History Pantoprazole [Protonix] 40 mg PO QDAY 09/23/21 09/23/21 Unknown History amLODIPine 10 mg PO DAILY 09/23/21 09/23/21 Unknown History traZODone [Desyrel] 100 mg PO QHS 09/23/21 09/23/21 Unknown History Active Meds: Active Medications Abacavir Sulfate (Abacavir 300 Mg Tab) 600 mg PO DAILY [facility] Last Admin: 09/25/21 10:03 Dose: 600 mg Amlodipine Besylate (Amlodipine 10 Mg Tab) 10 mg PO DAILY [facility] Last Admin: 09/25/21 10:02 Dose: 10 mg Aripiprazole (Aripiprazole 15 Mg Tab) 15 mg PO QDAY [facility] Last Admin: 09/25/21 10:03 Dose: 15 mg Aspirin (Aspirin Ec 81 Mg Tab) 81 mg PO QDAY [facility] Last Admin: 09/25/21 10:02 Dose: 81 mg Atorvastatin Calcium (Atorvastatin 20 Mg Tab) 20 mg PO QHS [facility] Last Admin: 09/25/21 21:10 Dose: 20 mg Benztropine Mesylate (Benztropine 0.5 Mg Tab) 0.5 mg PO BID [facility] Last Admin: 09/25/21 21:10 Dose: 0.5 mg Dolutegravir Sodium (Dolutegravir 50 Mg Tab) 50 mg PO DAILY [facility] Last Admin: 09/25/21 10:03 Dose: 50 mg Lamivudine (Lamivudine 150 Mg Tab) 300 mg PO DAILY [facility] Last Admin: 09/25/21 10:03 Dose: 300 mg Metformin HCl (Metformin 500 Mg Tab) 500 mg PO BIDDIAB [facility] Last Admin: 09/25/21 17:41 Dose: 500 mg Pantoprazole Sodium (Pantoprazole 40 Mg Tab) 40 mg PO QDAY [facility] Last Admin: 09/25/21 10:03 Dose: 40 mg Trazodone HCl (Trazodone 100 Mg Tab) 100 mg PO QHS [facility] Last Admin: 09/25/21 21:11 Dose: Not Given Results - Results Labs/Vitals: Laboratory Last Values WBC 6.5 K/mm3 (4.5-11.0) 09/23/21 07:09 RBC 5.00 M/mm3 (3.65-5.03) 09/23/21 07:09 Hgb 13.5 gm/dl (10.1-14.3) 09/23/21 07:09 Hct 42.2 % (30.3-42.9) 09/23/21 07:09 MCV 84 fl (79-97) 09/23/21 07:09 MCH 27 pg (28-32) L 09/23/21 07:09 MCHC 32 % (30-34) 09/23/21 07:09 RDW 16.2 % (13.2-15.2) H 09/23/21 07:09 Plt Count 297 K/mm3 (140-440) 09/23/21 07:09 Lymph % (Auto) 36.9 % (13.4-35.0) H 09/23/21 07:09 [place] % (Auto) 10.0 % (0.0-7.3) H 09/23/21 07:09 Eos % (Auto) 1.4 % (0.0-4.3) 09/23/21 07:09 Baso % (Auto) 0.8 % (0.0-1.8) 09/23/21 07:09 Lymph # (Auto) 2.4 K/mm3 (1.2-5.4) 09/23/21 07:09 [place] # (Auto) 0.7 K/mm3 (0.0-0.8) 09/23/21 07:09 Eos # (Auto) 0.1 K/mm3 (0.0-0.4) 09/23/21 07:09 Baso # (Auto) 0.1 K/mm3 (0.0-0.1) 09/23/21 07:09 Seg Neutrophils % 50.9 % (40.0-70.0) 09/23/21 07:09 Seg Neutrophils # 3.3 K/mm3 (1.8-7.7) 09/23/21 07:09 Sodium 138 mmol/L (137-145) 09/23/21 07:09 Potassium 4.5 mmol/L (3.6-5.0) 09/23/21 07:09 Chloride 104.4 mmol/L (98-107) 09/23/21 07:09 Carbon Dioxide 26 mmol/L (22-30) 09/23/21 07:09 Anion Gap 12 mmol/L 09/23/21 07:09 BUN 21 mg/dL (7-17) H 09/23/21 07:09 Creatinine 0.7 mg/dL (0.6-1.2) 09/23/21 07:09 Estimated GFR > 60 ml/min 09/23/21 07:09 BUN/Creatinine Ratio 30 % 09/23/21 07:09 Glucose 195 mg/dL (65-100) H 09/23/21 07:09 POC Glucose 189 mg/dL (70-105) H 09/26/21 07:31 Hemoglobin A1c 8.4 % (4-6) H 09/23/21 07:09 Calcium 9.2 mg/dL (8.4-10.2) 09/23/21 07:09 Total Bilirubin 0.30 mg/dL (0.1-1.2) 09/23/21 07:09 AST 14 units/L (5-40) 09/23/21 07:09 ALT 16 units/L (7-56) 09/23/21 07:09 Alkaline Phosphatase 153 units/L (35-129) H 09/23/21 07:09 Total Protein 7.6 g/dL (6.3-8.2) 09/23/21 07:09 Albumin 4.0 g/dL (3.9-5) 09/23/21 07:09 Albumin/Globulin Ratio 1.1 % 09/23/21 07:09 Triglycerides 146 mg/dL (2-149) 09/23/21 07:09 Cholesterol 186 mg/dL (50-199) 09/23/21 07:09 LDL Cholesterol Direct 113 mg/dL (50-130) 09/23/21 07:09 HDL Cholesterol 43 mg/dL (40-59) 09/23/21 07:09 Cholesterol/HDL Ratio 4.32 % 09/23/21 07:09 TSH 3.020 mlU/mL (0.270-4.200) 09/23/21 07:09 Last Vital Signs Temp 98.6 F 09/25/21 19:37 Pulse 62 09/25/21 19:37 Resp 17 09/25/21 19:37 BP 138/89 09/25/21 19:37 Pulse Ox 99 09/25/21 19:37
[2021-09-26] MEDS: metFORMIN 500 MG TAB PO SCH ×2 (10:19→16:47)
[2021-09-26] MEDS: ARIPiprazole 15 MG TAB PO SCH (10:20)
[2021-09-26] MEDS: BENZTROPINE 0.5 MG TAB PO SCH ×2 (10:21→22:14)
[2021-09-26] MEDS: amLODIPine 10 MG TAB PO SCH (10:21)
[2021-09-26] MEDS: PANTOPRAZOLE 40 MG TAB PO SCH (10:22)
[2021-09-26] MEDS: ASPIRIN EC 81 MG TAB PO SCH (10:22)
[2021-09-26] MEDS: DOLUTEGRAVIR 50 MG TAB PO SCH (10:23)
[2021-09-26] MEDS: ABACAVIR 300 MG TAB PO SCH (11:18)
[2021-09-26] MEDS: traZODone 100 MG TAB PO SCH (22:14)
[2021-09-27] MEDS ORDERED: metFORMIN 500 MG TAB PO SCH (07:10)
--- NOTE | 2021-09-27 07:11 | Progress Note ---
Assessment and Plan Assessment and plan: Patient is a 61 year old female with past medical hx of DM, Heptatis C, HIV, Bipolar disorder, paranoid Schizophreania, admitted to our facility after presenting to an outside facility with suicidal ideation. On my examination, she denies any chest pain, nausea, vomiting, diarrhea, fever. she informs me that she is complaint with her medications and will like to go home. She did not elaborate with me on the suicidal ideation. No other issues reported by nursing staff. DM Hepatitis C HIV/AIDS HTN TOBACCO USE Schizophrenia-Paranoid Right wrist nodule PLAN No change in management from medical standpoint Recommend outpatient evaluation of the right wrist nodule. May require imaging study or some form of a biopsy. Patient states is nontender and none mobile. And he has been present for a few weeks. No change in medical management at this time Continue with plan as outlined by psychiatry Increase metformin to 850mg BID Check renal function in am continue supportive care Resume home meds ACCUCHECKS Discussed with Nursing staff to ensure resumption of the HIV/AIDS medications Counselling on Tobacco use discussed in detail for 15 mins, risk associated with Tobacco use discussed in detail and she verbalized understanding DVT/GI prophy History Interval history: Patient seen and examined in the day room, no new concerns Hospitalist Physical - Physical exam Narrative exam: VITAL SIGNS: Reviewed. GENERAL: The patient appears normally developed, Vital signs as documented. HEAD: No signs of head trauma. EYES: Pupils are equal. Extraocular motions intact. EARS: Hearing grossly intact. MOUTH: Oropharynx is normal. NECK: No adenopathy, no JVD. CHEST: Chest with clear breath sounds bilaterally. No wheezes, rales, or rhonchi. CARDIAC: Regular rate and rhythm. S1 and S2, without murmurs, gallops, or rubs. VASCULAR: No Edema. Peripheral pulses normal and equal in all extremities. ABDOMEN: Soft, non tender and non distended. No rebound or guarding, and no masses palpated. Bowel Sounds normal. MUSCULOSKELETAL: Soft nodule right dorsum area of the wrist good range of motion of all major joints. Extremities without clubbing, cyanosis or edema. NEUROLOGIC EXAM: Alert and oriented x 3 No focal sensory or strength deficits. Speech normal. Follows commands. PSYCHIATRIC: Mood normal. SKIN: detail exam as documented in skin assessment - Constitutional Vitals: Temp Pulse Resp BP Pulse Ox 98.3 F 69 17 130/79 98 09/26/21 19:29 09/26/21 19:29 09/26/21 19:29 09/26/21 19:29 09/26/21 19:29 General appearance: Present: no acute distress, well-nourished. Absent: mild distress, severe distress Results - Labs CBC & Chem 7: 09/23/21 07:09 09/23/21 07:09 Labs: Laboratory Last Values WBC 6.5 K/mm3 (4.5-11.0) 09/23/21 07:09 RBC 5.00 M/mm3 (3.65-5.03) 09/23/21 07:09 Hgb 13.5 gm/dl (10.1-14.3) 09/23/21 07:09 Hct 42.2 % (30.3-42.9) 09/23/21 07:09 MCV 84 fl (79-97) 09/23/21 07:09 MCH 27 pg (28-32) L 09/23/21 07:09 MCHC 32 % (30-34) 09/23/21 07:09 RDW 16.2 % (13.2-15.2) H 09/23/21 07:09 Plt Count 297 K/mm3 (140-440) 09/23/21 07:09 Lymph % (Auto) 36.9 % (13.4-35.0) H 09/23/21 07:09 [place] % (Auto) 10.0 % (0.0-7.3) H 09/23/21 07:09 Eos % (Auto) 1.4 % (0.0-4.3) 09/23/21 07:09 Baso % (Auto) 0.8 % (0.0-1.8) 09/23/21 07:09 Lymph # (Auto) 2.4 K/mm3 (1.2-5.4) 09/23/21 07:09 [place] # (Auto) 0.7 K/mm3 (0.0-0.8) 09/23/21 07:09 Eos # (Auto) 0.1 K/mm3 (0.0-0.4) 09/23/21 07:09 Baso # (Auto) 0.1 K/mm3 (0.0-0.1) 09/23/21 07:09 Seg Neutrophils % 50.9 % (40.0-70.0) 09/23/21 07:09 Seg Neutrophils # 3.3 K/mm3 (1.8-7.7) 09/23/21 07:09 Sodium 138 mmol/L (137-145) 09/23/21 07:09 Potassium 4.5 mmol/L (3.6-5.0) 09/23/21 07:09 Chloride 104.4 mmol/L (98-107) 09/23/21 07:09 Carbon Dioxide 26 mmol/L (22-30) 09/23/21 07:09 Anion Gap 12 mmol/L 09/23/21 07:09 BUN 21 mg/dL (7-17) H 09/23/21 07:09 Creatinine 0.7 mg/dL (0.6-1.2) 09/23/21 07:09 Estimated GFR > 60 ml/min 09/23/21 07:09 BUN/Creatinine Ratio 30 % 09/23/21 07:09 Glucose 195 mg/dL (65-100) H 09/23/21 07:09 POC Glucose 216 mg/dL (70-105) H 09/27/21 06:18 Hemoglobin A1c 8.4 % (4-6) H 09/23/21 07:09 Calcium 9.2 mg/dL (8.4-10.2) 09/23/21 07:09 Total Bilirubin 0.30 mg/dL (0.1-1.2) 09/23/21 07:09 AST 14 units/L (5-40) 09/23/21 07:09 ALT 16 units/L (7-56) 09/23/21 07:09 Alkaline Phosphatase 153 units/L (35-129) H 09/23/21 07:09 Total Protein 7.6 g/dL (6.3-8.2) 09/23/21 07:09 Albumin 4.0 g/dL (3.9-5) 09/23/21 07:09 Albumin/Globulin Ratio 1.1 % 09/23/21 07:09 Triglycerides 146 mg/dL (2-149) 09/23/21 07:09 Cholesterol 186 mg/dL (50-199) 09/23/21 07:09 LDL Cholesterol Direct 113 mg/dL (50-130) 09/23/21 07:09 HDL Cholesterol 43 mg/dL (40-59) 09/23/21 07:09 Cholesterol/HDL Ratio 4.32 % 09/23/21 07:09 TSH 3.020 mlU/mL (0.270-4.200) 09/23/21 07:09 Aguiar/IV: Voiding Method Toilet Active Medications - Current Medications Current Medications: Generic Name Dose Route Start Last Admin Trade Name Marcialq PRN Reason Stop Dose Admin Abacavir Sulfate 600 mg 09/23/21 14:00 09/26/21 11:18 Abacavir 300 Mg Tab PO 600 mg DAILY [facility] Administration Amlodipine Besylate 10 mg 09/23/21 11:00 09/26/21 10:21 Amlodipine 10 Mg Tab PO 10 mg DAILY [facility] Administration Aripiprazole 15 mg 09/24/21 11:30 09/26/21 10:20 Aripiprazole 15 Mg Tab PO 15 mg QDAY [facility] Administration Aspirin 81 mg 09/23/21 11:00 09/26/21 10:22 Aspirin Ec 81 Mg Tab PO 81 mg QDAY [facility] Administration Atorvastatin Calcium 20 mg 09/23/21 22:00 09/26/21 22:14 Atorvastatin 20 Mg Tab PO 20 mg QHS [facility] Administration Benztropine Mesylate 0.5 mg 09/24/21 11:00 09/26/21 22:14 Benztropine 0.5 Mg Tab PO 0.5 mg BID [facility] Administration Dolutegravir Sodium 50 mg 09/23/21 14:00 09/26/21 10:23 Dolutegravir 50 Mg Tab PO 50 mg DAILY [facility] Administration Lamivudine 300 mg 09/23/21 14:00 09/26/21 10:22 Lamivudine 150 Mg Tab PO 300 mg DAILY [facility] Administration Metformin HCl 850 mg 09/27/21 07:10 Metformin 500 Mg Tab PO BIDDIAB [facility] Pantoprazole Sodium 40 mg 09/23/21 11:00 09/26/21 10:22 Pantoprazole 40 Mg Tab PO 40 mg QDAY [facility] Administration Trazodone HCl 100 mg 09/23/21 22:00 09/26/21 22:14 Trazodone 100 Mg Tab PO Not Given QHS [facility]
[2021-09-27] MEDS: metFORMIN 850 MG TAB PO SCH ×2 (08:26→16:43)
--- NOTE | 2021-09-27 09:26 | Progress Note ---
Subjective Date of service: 09/27/21 Principal diagnosis: Schizophrenia Subjective Comment: 09/27:The patient was seen today. The patient reports doing well. She reports sleep and appetite as good. She denies SI/HI and denies hallucinations. No changes made today. 09/26:The patient was seen today. She reports doing well and mood is good. She is focused on discharge. She denies SI/HI and denies hallucinations. No changes made today 09/25: The patient was seen today. She says she's feeling better and "blessed." She denies SI/HI or hallucinations. She is expressing feeling ready to go home. The patient will discharge once her outpatient resources are in place to ensure continuity of her mental wellness. REVIEW OF SYSTEMS Constitutional: Negative for weight loss ENT: Negative for stridor Respiratory: Negative for cough or hemoptysis All other systems reviewed and are negative MENTAL STATUS EXAMINATION General Appearance: Dressed appropriately Behavior: calm and cooperative Mood: Ok Affect and affective range: congruent with mood Thought Process: Goal directed Thought content: Reality oriented Speech: Normal tone and pace Suicidal Ideation: Denies Homicidal Ideation: Denies Hallucinations: Denies Delusions: None elicited Insight and Judgment: Limited insight and judgment Memory: Limited Attention: Distracted Orientation: Alert, oriented Assessment Schizophrenia Treatment Plan Patient admitted for inpatient psychiatric evaluation, medication adjustment and close monitoring The patient's behavior, mood, sleep and appetite will be closely monitored. Patient enrolled in individual and group therapeutic sessions and encouraged to attend. Patient provided with a safe and structured environment. Patient's physical health needs will be addressed by the Hospitalist. Hospitalist Consulted Labs including CBC, CMP, Lipid profile and Hemoglobin A1C levels ordered for baseline reference Social Assessment will be completed and the Fiscal Clerk will work with patient and family to ensure a suitable and safe disposition Medication adjustment will be made as clinically indicated Continue Abilify 15mg po daily. No changes made today Usual Wellness Yazdanism/Preservation: - Start Trazodone 50 mg po QHS & 50 mg po QHS PRN between 10 PM & 2 AM for insomnia - Start Melatonin 5 mg po QHS to promote circadian rhythm The patient agreed on the treatment plan, understood the risk, benefit, alternative treatment, potential consequence of no treatment, and gave informed consent. Estimated days 4 Post hospital care: primary care provider, psychiatric provider Case staffed with Dr. Vásquez Medications and Allergies Medications and Allergies Allergies Allergy/AdvReac Type Severity Reaction Status Date / Time fluphenazine [From Prolixin] Allergy Unknown Verified 09/23/21 03:50 haloperidol [From Haldol] Allergy Unknown Verified 09/23/21 03:50 metronidazole [From Flagyl] Allergy Unknown Verified 09/23/21 03:50 Penicillins Allergy Unknown Verified 09/23/21 03:50 Home Medications Medication Instructions Recorded Confirmed Last Taken Type ARIPiprazole [Abilify] 10 mg PO DAILY 09/23/21 09/23/21 Unknown History Abacavir/Dolutegravir/Lamivudi 500 mg PO DAILY 09/23/21 09/23/21 Unknown History [Triumeq (Nf)] Aspirin EC [Halfprin EC] 81 mg PO QDAY 09/23/21 09/23/21 Unknown History AtorvaSTATin [Lipitor] 20 mg PO QHS 09/23/21 09/23/21 Unknown History Omeprazole 20 mg PO DAILY 09/23/21 09/23/21 Unknown History Pantoprazole [Protonix] 40 mg PO QDAY 09/23/21 09/23/21 Unknown History amLODIPine 10 mg PO DAILY 09/23/21 09/23/21 Unknown History traZODone [Desyrel] 100 mg PO QHS 09/23/21 09/23/21 Unknown History Active Meds: Active Medications Abacavir Sulfate (Abacavir 300 Mg Tab) 600 mg PO DAILY [facility] Last Admin: 09/26/21 11:18 Dose: 600 mg Amlodipine Besylate (Amlodipine 10 Mg Tab) 10 mg PO DAILY [facility] Last Admin: 09/26/21 10:21 Dose: 10 mg Aripiprazole (Aripiprazole 15 Mg Tab) 15 mg PO QDAY [facility] Last Admin: 09/26/21 10:20 Dose: 15 mg Aspirin (Aspirin Ec 81 Mg Tab) 81 mg PO QDAY [facility] Last Admin: 09/26/21 10:22 Dose: 81 mg Atorvastatin Calcium (Atorvastatin 20 Mg Tab) 20 mg PO QHS [facility] Last Admin: 09/26/21 22:14 Dose: 20 mg Benztropine Mesylate (Benztropine 0.5 Mg Tab) 0.5 mg PO BID [facility] Last Admin: 09/26/21 22:14 Dose: 0.5 mg Dolutegravir Sodium (Dolutegravir 50 Mg Tab) 50 mg PO DAILY [facility] Last Admin: 09/26/21 10:23 Dose: 50 mg Lamivudine (Lamivudine 150 Mg Tab) 300 mg PO DAILY [facility] Last Admin: 09/26/21 10:22 Dose: 300 mg Metformin HCl (Metformin 850 Mg Tab) 850 mg PO BIDDIAB [facility] Last Admin: 09/27/21 08:26 Dose: 850 mg Pantoprazole Sodium (Pantoprazole 40 Mg Tab) 40 mg PO QDAY [facility] Last Admin: 09/26/21 10:22 Dose: 40 mg Trazodone HCl (Trazodone 100 Mg Tab) 100 mg PO QHS [facility] Last Admin: 09/26/21 22:14 Dose: Not Given Results - Results Labs/Vitals: Laboratory Last Values WBC 6.5 K/mm3 (4.5-11.0) 09/23/21 07:09 RBC 5.00 M/mm3 (3.65-5.03) 09/23/21 07:09 Hgb 13.5 gm/dl (10.1-14.3) 09/23/21 07:09 Hct 42.2 % (30.3-42.9) 09/23/21 07:09 MCV 84 fl (79-97) 09/23/21 07:09 MCH 27 pg (28-32) L 09/23/21 07:09 MCHC 32 % (30-34) 09/23/21 07:09 RDW 16.2 % (13.2-15.2) H 09/23/21 07:09 Plt Count 297 K/mm3 (140-440) 09/23/21 07:09 Lymph % (Auto) 36.9 % (13.4-35.0) H 09/23/21 07:09 [place] % (Auto) 10.0 % (0.0-7.3) H 09/23/21 07:09 Eos % (Auto) 1.4 % (0.0-4.3) 09/23/21 07:09 Baso % (Auto) 0.8 % (0.0-1.8) 09/23/21 07:09 Lymph # (Auto) 2.4 K/mm3 (1.2-5.4) 09/23/21 07:09 [place] # (Auto) 0.7 K/mm3 (0.0-0.8) 09/23/21 07:09 Eos # (Auto) 0.1 K/mm3 (0.0-0.4) 09/23/21 07:09 Baso # (Auto) 0.1 K/mm3 (0.0-0.1) 09/23/21 07:09 Seg Neutrophils % 50.9 % (40.0-70.0) 09/23/21 07:09 Seg Neutrophils # 3.3 K/mm3 (1.8-7.7) 09/23/21 07:09 Sodium 138 mmol/L (137-145) 09/23/21 07:09 Potassium 4.5 mmol/L (3.6-5.0) 09/23/21 07:09 Chloride 104.4 mmol/L (98-107) 09/23/21 07:09 Carbon Dioxide 26 mmol/L (22-30) 09/23/21 07:09 Anion Gap 12 mmol/L 09/23/21 07:09 BUN 21 mg/dL (7-17) H 09/23/21 07:09 Creatinine 0.7 mg/dL (0.6-1.2) 09/23/21 07:09 Estimated GFR > 60 ml/min 09/23/21 07:09 BUN/Creatinine Ratio 30 % 09/23/21 07:09 Glucose 195 mg/dL (65-100) H 09/23/21 07:09 POC Glucose 216 mg/dL (70-105) H 09/27/21 06:18 Hemoglobin A1c 8.4 % (4-6) H 09/23/21 07:09 Calcium 9.2 mg/dL (8.4-10.2) 09/23/21 07:09 Total Bilirubin 0.30 mg/dL (0.1-1.2) 09/23/21 07:09 AST 14 units/L (5-40) 09/23/21 07:09 ALT 16 units/L (7-56) 09/23/21 07:09 Alkaline Phosphatase 153 units/L (35-129) H 09/23/21 07:09 Total Protein 7.6 g/dL (6.3-8.2) 09/23/21 07:09 Albumin 4.0 g/dL (3.9-5) 09/23/21 07:09 Albumin/Globulin Ratio 1.1 % 09/23/21 07:09 Triglycerides 146 mg/dL (2-149) 09/23/21 07:09 Cholesterol 186 mg/dL (50-199) 09/23/21 07:09 LDL Cholesterol Direct 113 mg/dL (50-130) 09/23/21 07:09 HDL Cholesterol 43 mg/dL (40-59) 09/23/21 07:09 Cholesterol/HDL Ratio 4.32 % 09/23/21 07:09 TSH 3.020 mlU/mL (0.270-4.200) 09/23/21 07:09 Last Vital Signs Temp 98.3 F 09/26/21 19:29 Pulse 69 09/26/21 19:29 Resp 17 09/26/21 19:29 BP 130/79 09/26/21 19:29 Pulse Ox 98 09/26/21 19:29
[2021-09-27] MEDS: BENZTROPINE 0.5 MG TAB PO SCH ×2 (09:58→21:53)
[2021-09-27] MEDS: amLODIPine 10 MG TAB PO SCH (09:58)
[2021-09-27] MEDS: DOLUTEGRAVIR 50 MG TAB PO SCH (09:58)
[2021-09-27] MEDS: ASPIRIN EC 81 MG TAB PO SCH (09:58)
[2021-09-27] MEDS: ARIPiprazole 15 MG TAB PO SCH (09:59)
[2021-09-27] MEDS: PANTOPRAZOLE 40 MG TAB PO SCH (10:04)
[2021-09-27] MEDS: ABACAVIR 300 MG TAB PO SCH (10:38)
[2021-09-27] MEDS: traZODone 100 MG TAB PO SCH ×2 (21:53→22:23)
[2021-09-28 06:38] LABS: Blood Urea Nitrogen 15 mg/dL (7-17); Calcium 9.4 mg/dL (8.4-10.2); Hemolysis Index 4
[2021-09-28 06:41] LABS: BUN/Creatinine Ratio 25
[2021-09-28] MEDS: DOLUTEGRAVIR 50 MG TAB PO SCH (09:22)
[2021-09-28] MEDS: BENZTROPINE 0.5 MG TAB PO SCH ×2 (09:22→22:35)
[2021-09-28] MEDS: ABACAVIR 300 MG TAB PO SCH (09:22)
[2021-09-28] MEDS: metFORMIN 850 MG TAB PO SCH ×2 (09:22→16:57)
[2021-09-28] MEDS: ASPIRIN EC 81 MG TAB PO SCH (09:22)
[2021-09-28] MEDS: PANTOPRAZOLE 40 MG TAB PO SCH (09:22)
[2021-09-28] MEDS: ARIPiprazole 15 MG TAB PO SCH (09:22)
[2021-09-28] MEDS: amLODIPine 10 MG TAB PO SCH (09:22)
--- NOTE | 2021-09-28 09:40 | Progress Note ---
Subjective Date of service: 09/28/21 Principal diagnosis: Schizophrenia Subjective Comment: 09/28:The patient was seen today. She is calm and cooperative. The patient reports doing well. She reports sleep and appetite as good. She denies SI/HI and denies hallucinations. No changes made today. 09/27:The patient was seen today. The patient reports doing well. She reports sleep and appetite as good. She denies SI/HI and denies hallucinations. No changes made today. 09/26:The patient was seen today. She reports doing well and mood is good. She is focused on discharge. She denies SI/HI and denies hallucinations. No changes made today 09/25: The patient was seen today. She says she's feeling better and "blessed." She denies SI/HI or hallucinations. She is expressing feeling ready to go home. The patient will discharge once her outpatient resources are in place to ensure continuity of her mental wellness. REVIEW OF SYSTEMS Constitutional: Negative for weight loss ENT: Negative for stridor Respiratory: Negative for cough or hemoptysis All other systems reviewed and are negative MENTAL STATUS EXAMINATION General Appearance: Dressed appropriately Behavior: calm and cooperative Mood: good Affect and affective range: congruent with mood Thought Process: Goal directed Thought content: Reality oriented Speech: Normal tone and pace Suicidal Ideation: Denies Homicidal Ideation: Denies Hallucinations: Denies Delusions: None elicited Insight and Judgment: Limited insight and judgment Memory: Limited Attention: Distracted Orientation: Alert, oriented Assessment Schizophrenia Treatment Plan Patient admitted for inpatient psychiatric evaluation, medication adjustment and close monitoring The patient's behavior, mood, sleep and appetite will be closely monitored. Patient enrolled in individual and group therapeutic sessions and encouraged to attend. Patient provided with a safe and structured environment. Patient's physical health needs will be addressed by the Hospitalist. Hospitalist Consulted Labs including CBC, CMP, Lipid profile and Hemoglobin A1C levels ordered for baseline reference Social Assessment will be completed and the Manager Of Medical will work with patient and family to ensure a suitable and safe disposition Medication adjustment will be made as clinically indicated Continue Abilify 15mg po daily. No changes made today Usual Wellness Taoist/Preservation: - Start Trazodone 50 mg po QHS & 50 mg po QHS PRN between 10 PM & 2 AM for insomnia - Start Melatonin 5 mg po QHS to promote circadian rhythm The patient agreed on the treatment plan, understood the risk, benefit, alternative treatment, potential consequence of no treatment, and gave informed consent. Estimated days 4 Post hospital care: primary care provider, psychiatric provider Case staffed with Dr. Vásquez Medications and Allergies Medications and Allergies Allergies Allergy/AdvReac Type Severity Reaction Status Date / Time fluphenazine [From Prolixin] Allergy Unknown Verified 09/23/21 03:50 haloperidol [From Haldol] Allergy Unknown Verified 09/23/21 03:50 metronidazole [From Flagyl] Allergy Unknown Verified 09/23/21 03:50 Penicillins Allergy Unknown Verified 09/23/21 03:50 Home Medications Medication Instructions Recorded Confirmed Last Taken Type ARIPiprazole [Abilify] 10 mg PO DAILY 09/23/21 09/23/21 Unknown History Abacavir/Dolutegravir/Lamivudi 500 mg PO DAILY 09/23/21 09/23/21 Unknown History [Triumeq (Nf)] Aspirin EC [Halfprin EC] 81 mg PO QDAY 09/23/21 09/23/21 Unknown History AtorvaSTATin [Lipitor] 20 mg PO QHS 09/23/21 09/23/21 Unknown History Omeprazole 20 mg PO DAILY 09/23/21 09/23/21 Unknown History Pantoprazole [Protonix] 40 mg PO QDAY 09/23/21 09/23/21 Unknown History amLODIPine 10 mg PO DAILY 09/23/21 09/23/21 Unknown History traZODone [Desyrel] 100 mg PO QHS 09/23/21 09/23/21 Unknown History Active Meds: Active Medications Abacavir Sulfate (Abacavir 300 Mg Tab) 600 mg PO DAILY [facility] Last Admin: 09/28/21 09:22 Dose: 600 mg Amlodipine Besylate (Amlodipine 10 Mg Tab) 10 mg PO DAILY [facility] Last Admin: 09/28/21 09:22 Dose: 10 mg Aripiprazole (Aripiprazole 15 Mg Tab) 15 mg PO QDAY [facility] Last Admin: 09/28/21 09:22 Dose: 15 mg Aspirin (Aspirin Ec 81 Mg Tab) 81 mg PO QDAY [facility] Last Admin: 09/28/21 09:22 Dose: 81 mg Atorvastatin Calcium (Atorvastatin 20 Mg Tab) 20 mg PO QHS [facility] Last Admin: 09/27/21 21:53 Dose: 20 mg Benztropine Mesylate (Benztropine 0.5 Mg Tab) 0.5 mg PO BID [facility] Last Admin: 09/28/21 09:22 Dose: 0.5 mg Dolutegravir Sodium (Dolutegravir 50 Mg Tab) 50 mg PO DAILY [facility] Last Admin: 09/28/21 09:22 Dose: 50 mg Lamivudine (Lamivudine 150 Mg Tab) 300 mg PO DAILY [facility] Last Admin: 09/28/21 09:22 Dose: 300 mg Metformin HCl (Metformin 850 Mg Tab) 850 mg PO BIDDIAB [facility] Last Admin: 09/28/21 09:22 Dose: 850 mg Pantoprazole Sodium (Pantoprazole 40 Mg Tab) 40 mg PO QDAY [facility] Last Admin: 09/28/21 09:22 Dose: 40 mg Trazodone HCl (Trazodone 100 Mg Tab) 100 mg PO QHS [facility] Last Admin: 09/27/21 22:23 Dose: Not Given Results - Results Labs/Vitals: Laboratory Last Values WBC 6.5 K/mm3 (4.5-11.0) 09/23/21 07:09 RBC 5.00 M/mm3 (3.65-5.03) 09/23/21 07:09 Hgb 13.5 gm/dl (10.1-14.3) 09/23/21 07:09 Hct 42.2 % (30.3-42.9) 09/23/21 07:09 MCV 84 fl (79-97) 09/23/21 07:09 MCH 27 pg (28-32) L 09/23/21 07:09 MCHC 32 % (30-34) 09/23/21 07:09 RDW 16.2 % (13.2-15.2) H 09/23/21 07:09 Plt Count 297 K/mm3 (140-440) 09/23/21 07:09 Lymph % (Auto) 36.9 % (13.4-35.0) H 09/23/21 07:09 [place] % (Auto) 10.0 % (0.0-7.3) H 09/23/21 07:09 Eos % (Auto) 1.4 % (0.0-4.3) 09/23/21 07:09 Baso % (Auto) 0.8 % (0.0-1.8) 09/23/21 07:09 Lymph # (Auto) 2.4 K/mm3 (1.2-5.4) 09/23/21 07:09 [place] # (Auto) 0.7 K/mm3 (0.0-0.8) 09/23/21 07:09 Eos # (Auto) 0.1 K/mm3 (0.0-0.4) 09/23/21 07:09 Baso # (Auto) 0.1 K/mm3 (0.0-0.1) 09/23/21 07:09 Seg Neutrophils % 50.9 % (40.0-70.0) 09/23/21 07:09 Seg Neutrophils # 3.3 K/mm3 (1.8-7.7) 09/23/21 07:09 Sodium 135 mmol/L (137-145) L 09/28/21 05:45 Potassium 4.1 mmol/L (3.6-5.0) 09/28/21 05:45 Chloride 104.2 mmol/L (98-107) 09/28/21 05:45 Carbon Dioxide 22 mmol/L (22-30) 09/28/21 05:45 Anion Gap 13 mmol/L 09/28/21 05:45 BUN 15 mg/dL (7-17) 09/28/21 05:45 Creatinine 0.6 mg/dL (0.6-1.2) 09/28/21 05:45 Estimated GFR > 60 ml/min 09/28/21 05:45 BUN/Creatinine Ratio 25 % 09/28/21 05:45 Glucose 173 mg/dL (65-100) H 09/28/21 05:45 POC Glucose 179 mg/dL (70-105) H 09/28/21 06:02 Hemoglobin A1c 8.4 % (4-6) H 09/23/21 07:09 Calcium 9.4 mg/dL (8.4-10.2) 09/28/21 05:45 Total Bilirubin 0.30 mg/dL (0.1-1.2) 09/23/21 07:09 AST 14 units/L (5-40) 09/23/21 07:09 ALT 16 units/L (7-56) 09/23/21 07:09 Alkaline Phosphatase 153 units/L (35-129) H 09/23/21 07:09 Total Protein 7.6 g/dL (6.3-8.2) 09/23/21 07:09 Albumin 4.0 g/dL (3.9-5) 09/23/21 07:09 Albumin/Globulin Ratio 1.1 % 09/23/21 07:09 Triglycerides 146 mg/dL (2-149) 09/23/21 07:09 Cholesterol 186 mg/dL (50-199) 09/23/21 07:09 LDL Cholesterol Direct 113 mg/dL (50-130) 09/23/21 07:09 HDL Cholesterol 43 mg/dL (40-59) 09/23/21 07:09 Cholesterol/HDL Ratio 4.32 % 09/23/21 07:09 TSH 3.020 mlU/mL (0.270-4.200) 09/23/21 07:09 Last Vital Signs Temp 98.3 F 09/27/21 21:23 Pulse 53 L 09/28/21 09:22 Resp 18 09/27/21 21:23 BP 140/70 09/28/21 09:22 Pulse Ox 98 09/27/21 21:23
--- NOTE | 2021-09-28 10:51 | Progress Note ---
Assessment and Plan Assessment and plan: Patient is a 61 year old female with past medical hx of DM, Heptatis C, HIV, Bipolar disorder, paranoid Schizophreania, admitted to our facility after presenting to an outside facility with suicidal ideation. On my examination, she denies any chest pain, nausea, vomiting, diarrhea, fever. she informs me that she is complaint with her medications and will like to go home. She did not elaborate with me on the suicidal ideation. No other issues reported by nursing staff. DM Hepatitis C HIV/AIDS HTN TOBACCO USE Schizophrenia-Paranoid Right wrist nodule PLAN No change in management from medical standpoint Recommend outpatient evaluation of the right wrist nodule. May require imaging study or some form of a biopsy. Patient states is nontender and none mobile. And he has been present for a few weeks. No change in medical management at this time Continue with plan as outlined by psychiatry Increase metformin to 850mg BID Check renal function in am continue supportive care Resume home meds ACCUCHECKS Discussed with Nursing staff to ensure resumption of the HIV/AIDS medications Counselling on Tobacco use discussed in detail for 15 mins, risk associated with Tobacco use discussed in detail and she verbalized understanding DVT/GI prophy History Interval history: Patient seen and examined in the day room, no new concerns, wants to go home Hospitalist Physical - Physical exam Narrative exam: VITAL SIGNS: Reviewed. GENERAL: The patient appears normally developed, Vital signs as documented. HEAD: No signs of head trauma. EYES: Pupils are equal. Extraocular motions intact. EARS: Hearing grossly intact. MOUTH: Oropharynx is normal. NECK: No adenopathy, no JVD. CHEST: Chest with clear breath sounds bilaterally. No wheezes, rales, or rhonchi. CARDIAC: Regular rate and rhythm. S1 and S2, without murmurs, gallops, or rubs. VASCULAR: No Edema. Peripheral pulses normal and equal in all extremities. ABDOMEN: Soft, non tender and non distended. No rebound or guarding, and no masses palpated. Bowel Sounds normal. MUSCULOSKELETAL: Soft nodule right dorsum area of the wrist good range of motion of all major joints. Extremities without clubbing, cyanosis or edema. NEUROLOGIC EXAM: Alert and oriented x 3 No focal sensory or strength deficits. Speech normal. Follows commands. PSYCHIATRIC: Mood normal. SKIN: detail exam as documented in skin assessment - Constitutional Vitals: Temp Pulse Resp BP Pulse Ox 98.3 F 53 L 18 140/70 98 09/27/21 21:23 09/28/21 09:22 09/27/21 21:23 09/28/21 09:22 09/27/21 21:23 General appearance: Present: no acute distress, well-nourished. Absent: mild distress, severe distress Results - Labs CBC & Chem 7: 09/23/21 07:09 09/28/21 05:45 Labs: Laboratory Last Values WBC 6.5 K/mm3 (4.5-11.0) 09/23/21 07:09 RBC 5.00 M/mm3 (3.65-5.03) 09/23/21 07:09 Hgb 13.5 gm/dl (10.1-14.3) 09/23/21 07:09 Hct 42.2 % (30.3-42.9) 09/23/21 07:09 MCV 84 fl (79-97) 09/23/21 07:09 MCH 27 pg (28-32) L 09/23/21 07:09 MCHC 32 % (30-34) 09/23/21 07:09 RDW 16.2 % (13.2-15.2) H 09/23/21 07:09 Plt Count 297 K/mm3 (140-440) 09/23/21 07:09 Lymph % (Auto) 36.9 % (13.4-35.0) H 09/23/21 07:09 [place] % (Auto) 10.0 % (0.0-7.3) H 09/23/21 07:09 Eos % (Auto) 1.4 % (0.0-4.3) 09/23/21 07:09 Baso % (Auto) 0.8 % (0.0-1.8) 09/23/21 07:09 Lymph # (Auto) 2.4 K/mm3 (1.2-5.4) 09/23/21 07:09 [place] # (Auto) 0.7 K/mm3 (0.0-0.8) 09/23/21 07:09 Eos # (Auto) 0.1 K/mm3 (0.0-0.4) 09/23/21 07:09 Baso # (Auto) 0.1 K/mm3 (0.0-0.1) 09/23/21 07:09 Seg Neutrophils % 50.9 % (40.0-70.0) 09/23/21 07:09 Seg Neutrophils # 3.3 K/mm3 (1.8-7.7) 09/23/21 07:09 Sodium 135 mmol/L (137-145) L 09/28/21 05:45 Potassium 4.1 mmol/L (3.6-5.0) 09/28/21 05:45 Chloride 104.2 mmol/L (98-107) 09/28/21 05:45 Carbon Dioxide 22 mmol/L (22-30) 09/28/21 05:45 Anion Gap 13 mmol/L 09/28/21 05:45 BUN 15 mg/dL (7-17) 09/28/21 05:45 Creatinine 0.6 mg/dL (0.6-1.2) 09/28/21 05:45 Estimated GFR > 60 ml/min 09/28/21 05:45 BUN/Creatinine Ratio 25 % 09/28/21 05:45 Glucose 173 mg/dL (65-100) H 09/28/21 05:45 POC Glucose 179 mg/dL (70-105) H 09/28/21 06:02 Hemoglobin A1c 8.4 % (4-6) H 09/23/21 07:09 Calcium 9.4 mg/dL (8.4-10.2) 09/28/21 05:45 Total Bilirubin 0.30 mg/dL (0.1-1.2) 09/23/21 07:09 AST 14 units/L (5-40) 09/23/21 07:09 ALT 16 units/L (7-56) 09/23/21 07:09 Alkaline Phosphatase 153 units/L (35-129) H 09/23/21 07:09 Total Protein 7.6 g/dL (6.3-8.2) 09/23/21 07:09 Albumin 4.0 g/dL (3.9-5) 09/23/21 07:09 Albumin/Globulin Ratio 1.1 % 09/23/21 07:09 Triglycerides 146 mg/dL (2-149) 09/23/21 07:09 Cholesterol 186 mg/dL (50-199) 09/23/21 07:09 LDL Cholesterol Direct 113 mg/dL (50-130) 09/23/21 07:09 HDL Cholesterol 43 mg/dL (40-59) 09/23/21 07:09 Cholesterol/HDL Ratio 4.32 % 09/23/21 07:09 TSH 3.020 mlU/mL (0.270-4.200) 09/23/21 07:09 Aguiar/IV: Voiding Method Toilet Active Medications - Current Medications Current Medications: Generic Name Dose Route Start Last Admin Trade Name Radha PRN Reason Stop Dose Admin Abacavir Sulfate 600 mg 09/23/21 14:00 09/28/21 09:22 Abacavir 300 Mg Tab PO 600 mg DAILY [facility] Administration Amlodipine Besylate 10 mg 09/23/21 11:00 09/28/21 09:22 Amlodipine 10 Mg Tab PO 10 mg DAILY [facility] Administration Aripiprazole 15 mg 09/24/21 11:30 09/28/21 09:22 Aripiprazole 15 Mg Tab PO 15 mg QDAY [facility] Administration Aspirin 81 mg 09/23/21 11:00 09/28/21 09:22 Aspirin Ec 81 Mg Tab PO 81 mg QDAY [facility] Administration Atorvastatin Calcium 20 mg 09/23/21 22:00 09/27/21 21:53 Atorvastatin 20 Mg Tab PO 20 mg QHS [facility] Administration Benztropine Mesylate 0.5 mg 09/24/21 11:00 09/28/21 09:22 Benztropine 0.5 Mg Tab PO 0.5 mg BID [facility] Administration Dolutegravir Sodium 50 mg 09/23/21 14:00 09/28/21 09:22 Dolutegravir 50 Mg Tab PO 50 mg DAILY [facility] Administration Lamivudine 300 mg 09/23/21 14:00 09/28/21 09:22 Lamivudine 150 Mg Tab PO 300 mg DAILY [facility] Administration Metformin HCl 850 mg 09/27/21 08:00 09/28/21 09:22 Metformin 850 Mg Tab PO 850 mg BIDDIAB [facility] Administration Pantoprazole Sodium 40 mg 09/23/21 11:00 09/28/21 09:22 Pantoprazole 40 Mg Tab PO 40 mg QDAY [facility] Administration Trazodone HCl 100 mg 09/23/21 22:00 09/27/21 22:23 Trazodone 100 Mg Tab PO Not Given QHS [facility]
[2021-09-28] MEDS: traZODone 100 MG TAB PO SCH (22:35)
[2021-09-29] MEDS: metFORMIN 850 MG TAB PO SCH ×2 (08:37→18:12)
--- NOTE | 2021-09-29 09:00 | Progress Note ---
Subjective Date of service: 09/29/21 Principal diagnosis: Schizophrenia Subjective Comment: 09/29: The patient was seen today. The patient reports doing alright. She reports sleep and appetite as good. She denies SI/HI and denies hallucinations. No changes made today. 09/28:The patient was seen today. She is calm and cooperative. The patient reports doing well. She reports sleep and appetite as good. She denies SI/HI and denies hallucinations. No changes made today. 09/27:The patient was seen today. The patient reports doing well. She reports sleep and appetite as good. She denies SI/HI and denies hallucinations. No changes made today. 09/26:The patient was seen today. She reports doing well and mood is good. She is focused on discharge. She denies SI/HI and denies hallucinations. No changes made today 09/25: The patient was seen today. She says she's feeling better and "blessed." She denies SI/HI or hallucinations. She is expressing feeling ready to go home. The patient will discharge once her outpatient resources are in place to ensure continuity of her mental wellness. REVIEW OF SYSTEMS Constitutional: Negative for weight loss ENT: Negative for stridor Respiratory: Negative for cough or hemoptysis All other systems reviewed and are negative MENTAL STATUS EXAMINATION General Appearance: Dressed appropriately Behavior: calm and cooperative Mood: alright Affect and affective range: congruent with mood Thought Process: Goal directed Thought content: Reality oriented Speech: Normal tone and pace Suicidal Ideation: Denies Homicidal Ideation: Denies Hallucinations: Denies Delusions: None elicited Insight and Judgment: Limited insight and judgment Memory: Limited Attention: Distracted Orientation: Alert, oriented Assessment Schizophrenia Treatment Plan Patient admitted for inpatient psychiatric evaluation, medication adjustment and close monitoring The patient's behavior, mood, sleep and appetite will be closely monitored. Patient enrolled in individual and group therapeutic sessions and encouraged to attend. Patient provided with a safe and structured environment. Patient's physical health needs will be addressed by the Hospitalist. Hospitalist Consulted Labs including CBC, CMP, Lipid profile and Hemoglobin A1C levels ordered for baseline reference Social Assessment will be completed and the Enterprise Infrastructure Architect will work with patient and family to ensure a suitable and safe disposition Medication adjustment will be made as clinically indicated Continue Abilify 15mg po daily. No changes made today Usual Wellness [facility]/Preservation: - Start Trazodone 50 mg po QHS & 50 mg po QHS PRN between 10 PM & 2 AM for insomnia - Start Melatonin 5 mg po QHS to promote circadian rhythm The patient agreed on the treatment plan, understood the risk, benefit, alternative treatment, potential consequence of no treatment, and gave informed consent. Estimated days 4 Post hospital care: primary care provider, psychiatric provider Case staffed with Dr. Vásquez Medications and Allergies Medications and Allergies Allergies Allergy/AdvReac Type Severity Reaction Status Date / Time fluphenazine [From Prolixin] Allergy Unknown Verified 09/23/21 03:50 haloperidol [From Haldol] Allergy Unknown Verified 09/23/21 03:50 metronidazole [From Flagyl] Allergy Unknown Verified 09/23/21 03:50 Penicillins Allergy Unknown Verified 09/23/21 03:50 Home Medications Medication Instructions Recorded Confirmed Last Taken Type ARIPiprazole [Abilify] 10 mg PO DAILY 09/23/21 09/23/21 Unknown History Abacavir/Dolutegravir/Lamivudi 500 mg PO DAILY 09/23/21 09/23/21 Unknown History [Triumeq (Nf)] Aspirin EC [Halfprin EC] 81 mg PO QDAY 09/23/21 09/23/21 Unknown History AtorvaSTATin [Lipitor] 20 mg PO QHS 09/23/21 09/23/21 Unknown History Omeprazole 20 mg PO DAILY 09/23/21 09/23/21 Unknown History Pantoprazole [Protonix] 40 mg PO QDAY 09/23/21 09/23/21 Unknown History amLODIPine 10 mg PO DAILY 09/23/21 09/23/21 Unknown History traZODone [Desyrel] 100 mg PO QHS 09/23/21 09/23/21 Unknown History Active Meds: Active Medications Abacavir Sulfate (Abacavir 300 Mg Tab) 600 mg PO DAILY [facility] Last Admin: 09/28/21 09:22 Dose: 600 mg Amlodipine Besylate (Amlodipine 10 Mg Tab) 10 mg PO DAILY [facility] Last Admin: 09/28/21 09:22 Dose: 10 mg Aripiprazole (Aripiprazole 15 Mg Tab) 15 mg PO QDAY [facility] Last Admin: 09/28/21 09:22 Dose: 15 mg Aspirin (Aspirin Ec 81 Mg Tab) 81 mg PO QDAY [facility] Last Admin: 09/28/21 09:22 Dose: 81 mg Atorvastatin Calcium (Atorvastatin 20 Mg Tab) 20 mg PO QHS [facility] Last Admin: 09/28/21 22:35 Dose: 20 mg Benztropine Mesylate (Benztropine 0.5 Mg Tab) 0.5 mg PO BID [facility] Last Admin: 09/28/21 22:35 Dose: 0.5 mg Dolutegravir Sodium (Dolutegravir 50 Mg Tab) 50 mg PO DAILY [facility] Last Admin: 09/28/21 09:22 Dose: 50 mg Lamivudine (Lamivudine 150 Mg Tab) 300 mg PO DAILY [facility] Last Admin: 09/28/21 09:22 Dose: 300 mg Metformin HCl (Metformin 850 Mg Tab) 850 mg PO BIDDIAB [facility] Last Admin: 09/28/21 16:57 Dose: 850 mg Pantoprazole Sodium (Pantoprazole 40 Mg Tab) 40 mg PO QDAY [facility] Last Admin: 09/28/21 09:22 Dose: 40 mg Trazodone HCl (Trazodone 100 Mg Tab) 100 mg PO QHS [facility] Last Admin: 09/28/21 22:35 Dose: 100 mg Results - Results Labs/Vitals: Laboratory Last Values WBC 6.5 K/mm3 (4.5-11.0) 09/23/21 07:09 RBC 5.00 M/mm3 (3.65-5.03) 09/23/21 07:09 Hgb 13.5 gm/dl (10.1-14.3) 09/23/21 07:09 Hct 42.2 % (30.3-42.9) 09/23/21 07:09 MCV 84 fl (79-97) 09/23/21 07:09 MCH 27 pg (28-32) L 09/23/21 07:09 MCHC 32 % (30-34) 09/23/21 07:09 RDW 16.2 % (13.2-15.2) H 09/23/21 07:09 Plt Count 297 K/mm3 (140-440) 09/23/21 07:09 Lymph % (Auto) 36.9 % (13.4-35.0) H 09/23/21 07:09 [place] % (Auto) 10.0 % (0.0-7.3) H 09/23/21 07:09 Eos % (Auto) 1.4 % (0.0-4.3) 09/23/21 07:09 Baso % (Auto) 0.8 % (0.0-1.8) 09/23/21 07:09 Lymph # (Auto) 2.4 K/mm3 (1.2-5.4) 09/23/21 07:09 [place] # (Auto) 0.7 K/mm3 (0.0-0.8) 09/23/21 07:09 Eos # (Auto) 0.1 K/mm3 (0.0-0.4) 09/23/21 07:09 Baso # (Auto) 0.1 K/mm3 (0.0-0.1) 09/23/21 07:09 Seg Neutrophils % 50.9 % (40.0-70.0) 09/23/21 07:09 Seg Neutrophils # 3.3 K/mm3 (1.8-7.7) 09/23/21 07:09 Sodium 135 mmol/L (137-145) L 09/28/21 05:45 Potassium 4.1 mmol/L (3.6-5.0) 09/28/21 05:45 Chloride 104.2 mmol/L (98-107) 09/28/21 05:45 Carbon Dioxide 22 mmol/L (22-30) 09/28/21 05:45 Anion Gap 13 mmol/L 09/28/21 05:45 BUN 15 mg/dL (7-17) 09/28/21 05:45 Creatinine 0.6 mg/dL (0.6-1.2) 09/28/21 05:45 Estimated GFR > 60 ml/min 09/28/21 05:45 BUN/Creatinine Ratio 25 % 09/28/21 05:45 Glucose 173 mg/dL (65-100) H 09/28/21 05:45 POC Glucose 167 mg/dL (70-105) H 09/29/21 06:48 Hemoglobin A1c 8.4 % (4-6) H 09/23/21 07:09 Calcium 9.4 mg/dL (8.4-10.2) 09/28/21 05:45 Total Bilirubin 0.30 mg/dL (0.1-1.2) 09/23/21 07:09 AST 14 units/L (5-40) 09/23/21 07:09 ALT 16 units/L (7-56) 09/23/21 07:09 Alkaline Phosphatase 153 units/L (35-129) H 09/23/21 07:09 Total Protein 7.6 g/dL (6.3-8.2) 09/23/21 07:09 Albumin 4.0 g/dL (3.9-5) 09/23/21 07:09 Albumin/Globulin Ratio 1.1 % 09/23/21 07:09 Triglycerides 146 mg/dL (2-149) 09/23/21 07:09 Cholesterol 186 mg/dL (50-199) 09/23/21 07:09 LDL Cholesterol Direct 113 mg/dL (50-130) 09/23/21 07:09 HDL Cholesterol 43 mg/dL (40-59) 09/23/21 07:09 Cholesterol/HDL Ratio 4.32 % 09/23/21 07:09 TSH 3.020 mlU/mL (0.270-4.200) 09/23/21 07:09 Last Vital Signs Temp 98.3 F 09/29/21 06:12 Pulse 54 L 09/29/21 06:12 Resp 18 09/29/21 06:12 BP 132/69 09/29/21 06:12 Pulse Ox 96 09/29/21 06:12
--- NOTE | 2021-09-29 10:16 | Progress Note ---
Assessment and Plan Assessment and plan: Patient is a 61 year old female with past medical hx of DM, Heptatis C, HIV, Bipolar disorder, paranoid Schizophreania, admitted to our facility after presenting to an outside facility with suicidal ideation. On my examination, she denies any chest pain, nausea, vomiting, diarrhea, fever. she informs me that she is complaint with her medications and will like to go home. She did not elaborate with me on the suicidal ideation. No other issues reported by nursing staff. DM Hepatitis C HIV/AIDS HTN TOBACCO USE Schizophrenia-Paranoid Right wrist nodule PLAN No change in management from medical standpoint Recommend outpatient evaluation of the right wrist nodule. May require imaging study or some form of a biopsy. Patient states is nontender and none mobile. And he has been present for a few weeks. No change in medical management at this time Continue with plan as outlined by psychiatry Increase metformin to 850mg BID Check renal function in am continue supportive care Resume home meds ACCUCHECKS Discussed with Nursing staff to ensure resumption of the HIV/AIDS medications Counselling on Tobacco use discussed in detail for 15 mins, risk associated with Tobacco use discussed in detail and she verbalized understanding DVT/GI prophy History Interval history: Patient seen and examined in the day room, no new concerns, asking when she can go home Hospitalist Physical - Physical exam Narrative exam: VITAL SIGNS: Reviewed. GENERAL: The patient appears normally developed, Vital signs as documented. HEAD: No signs of head trauma. EYES: Pupils are equal. Extraocular motions intact. EARS: Hearing grossly intact. MOUTH: Oropharynx is normal. NECK: No adenopathy, no JVD. CHEST: Chest with clear breath sounds bilaterally. No wheezes, rales, or rhonchi. CARDIAC: Regular rate and rhythm. S1 and S2, without murmurs, gallops, or rubs. VASCULAR: No Edema. Peripheral pulses normal and equal in all extremities. ABDOMEN: Soft, non tender and non distended. No rebound or guarding, and no masses palpated. Bowel Sounds normal. MUSCULOSKELETAL: Soft nodule right dorsum area of the wrist good range of motion of all major joints. Extremities without clubbing, cyanosis or edema. NEUROLOGIC EXAM: Alert and oriented x 3 No focal sensory or strength deficits. Speech normal. Follows commands. PSYCHIATRIC: Mood normal. SKIN: detail exam as documented in skin assessment - Constitutional Vitals: Temp Pulse Resp BP Pulse Ox 98.3 F 54 L 18 132/69 96 09/29/21 06:12 09/29/21 06:12 09/29/21 06:12 09/29/21 06:12 09/29/21 06:12 General appearance: Present: no acute distress, well-nourished. Absent: mild distress, severe distress Results - Labs CBC & Chem 7: 09/23/21 07:09 09/28/21 05:45 Labs: Laboratory Last Values WBC 6.5 K/mm3 (4.5-11.0) 09/23/21 07:09 RBC 5.00 M/mm3 (3.65-5.03) 09/23/21 07:09 Hgb 13.5 gm/dl (10.1-14.3) 09/23/21 07:09 Hct 42.2 % (30.3-42.9) 09/23/21 07:09 MCV 84 fl (79-97) 09/23/21 07:09 MCH 27 pg (28-32) L 09/23/21 07:09 MCHC 32 % (30-34) 09/23/21 07:09 RDW 16.2 % (13.2-15.2) H 09/23/21 07:09 Plt Count 297 K/mm3 (140-440) 09/23/21 07:09 Lymph % (Auto) 36.9 % (13.4-35.0) H 09/23/21 07:09 [place] % (Auto) 10.0 % (0.0-7.3) H 09/23/21 07:09 Eos % (Auto) 1.4 % (0.0-4.3) 09/23/21 07:09 Baso % (Auto) 0.8 % (0.0-1.8) 09/23/21 07:09 Lymph # (Auto) 2.4 K/mm3 (1.2-5.4) 09/23/21 07:09 [place] # (Auto) 0.7 K/mm3 (0.0-0.8) 09/23/21 07:09 Eos # (Auto) 0.1 K/mm3 (0.0-0.4) 09/23/21 07:09 Baso # (Auto) 0.1 K/mm3 (0.0-0.1) 09/23/21 07:09 Seg Neutrophils % 50.9 % (40.0-70.0) 09/23/21 07:09 Seg Neutrophils # 3.3 K/mm3 (1.8-7.7) 09/23/21 07:09 Sodium 135 mmol/L (137-145) L 09/28/21 05:45 Potassium 4.1 mmol/L (3.6-5.0) 09/28/21 05:45 Chloride 104.2 mmol/L (98-107) 09/28/21 05:45 Carbon Dioxide 22 mmol/L (22-30) 09/28/21 05:45 Anion Gap 13 mmol/L 09/28/21 05:45 BUN 15 mg/dL (7-17) 09/28/21 05:45 Creatinine 0.6 mg/dL (0.6-1.2) 09/28/21 05:45 Estimated GFR > 60 ml/min 09/28/21 05:45 BUN/Creatinine Ratio 25 % 09/28/21 05:45 Glucose 173 mg/dL (65-100) H 09/28/21 05:45 POC Glucose 167 mg/dL (70-105) H 09/29/21 06:48 Hemoglobin A1c 8.4 % (4-6) H 09/23/21 07:09 Calcium 9.4 mg/dL (8.4-10.2) 09/28/21 05:45 Total Bilirubin 0.30 mg/dL (0.1-1.2) 09/23/21 07:09 AST 14 units/L (5-40) 09/23/21 07:09 ALT 16 units/L (7-56) 09/23/21 07:09 Alkaline Phosphatase 153 units/L (35-129) H 09/23/21 07:09 Total Protein 7.6 g/dL (6.3-8.2) 09/23/21 07:09 Albumin 4.0 g/dL (3.9-5) 09/23/21 07:09 Albumin/Globulin Ratio 1.1 % 09/23/21 07:09 Triglycerides 146 mg/dL (2-149) 09/23/21 07:09 Cholesterol 186 mg/dL (50-199) 09/23/21 07:09 LDL Cholesterol Direct 113 mg/dL (50-130) 09/23/21 07:09 HDL Cholesterol 43 mg/dL (40-59) 09/23/21 07:09 Cholesterol/HDL Ratio 4.32 % 09/23/21 07:09 TSH 3.020 mlU/mL (0.270-4.200) 09/23/21 07:09 Aguiar/IV: Voiding Method Toilet Active Medications - Current Medications Current Medications: Generic Name Dose Route Start Last Admin Trade Name Radha PRN Reason Stop Dose Admin Abacavir Sulfate 600 mg 09/23/21 14:00 09/28/21 09:22 Abacavir 300 Mg Tab PO 600 mg DAILY [facility] Administration Amlodipine Besylate 10 mg 09/23/21 11:00 09/28/21 09:22 Amlodipine 10 Mg Tab PO 10 mg DAILY [facility] Administration Aripiprazole 15 mg 09/24/21 11:30 09/28/21 09:22 Aripiprazole 15 Mg Tab PO 15 mg QDAY [facility] Administration Aspirin 81 mg 09/23/21 11:00 09/28/21 09:22 Aspirin Ec 81 Mg Tab PO 81 mg QDAY [facility] Administration Atorvastatin Calcium 20 mg 09/23/21 22:00 09/28/21 22:35 Atorvastatin 20 Mg Tab PO 20 mg QHS [facility] Administration Benztropine Mesylate 0.5 mg 09/24/21 11:00 09/28/21 22:35 Benztropine 0.5 Mg Tab PO 0.5 mg BID [facility] Administration Dolutegravir Sodium 50 mg 09/23/21 14:00 09/28/21 09:22 Dolutegravir 50 Mg Tab PO 50 mg DAILY [facility] Administration Lamivudine 300 mg 09/23/21 14:00 09/28/21 09:22 Lamivudine 150 Mg Tab PO 300 mg DAILY [facility] Administration Metformin HCl 850 mg 09/27/21 08:00 09/28/21 16:57 Metformin 850 Mg Tab PO 850 mg BIDDIAB [facility] Administration Pantoprazole Sodium 40 mg 09/23/21 11:00 09/28/21 09:22 Pantoprazole 40 Mg Tab PO 40 mg QDAY [facility] Administration Trazodone HCl 100 mg 09/23/21 22:00 09/28/21 22:35 Trazodone 100 Mg Tab PO 100 mg QHS [facility] Administration
[2021-09-29] MEDS: ABACAVIR 300 MG TAB PO SCH (11:14)
[2021-09-29] MEDS: ARIPiprazole 15 MG TAB PO SCH (11:37)
[2021-09-29] MEDS: amLODIPine 10 MG TAB PO SCH (11:38)
[2021-09-29] MEDS: BENZTROPINE 0.5 MG TAB PO SCH ×2 (11:38→21:24)
[2021-09-29] MEDS: ASPIRIN EC 81 MG TAB PO SCH (11:38)
[2021-09-29] MEDS: PANTOPRAZOLE 40 MG TAB PO SCH (11:39)
[2021-09-29] MEDS: DOLUTEGRAVIR 50 MG TAB PO SCH (11:39)
[2021-09-29] MEDS: traZODone 100 MG TAB PO SCH ×2 (21:24→21:27)
[2021-09-30 08:03] VITALS: BP 128/73
--- NOTE | 2021-09-30 08:29 | Progress Note ---
Assessment and Plan Assessment and plan: Patient is a 61 year old female with past medical hx of DM, Heptatis C, HIV, Bipolar disorder, paranoid Schizophreania, admitted to our facility after presenting to an outside facility with suicidal ideation. On my examination, she denies any chest pain, nausea, vomiting, diarrhea, fever. she informs me that she is complaint with her medications and will like to go home. She did not elaborate with me on the suicidal ideation. No other issues reported by nursing staff. DM Hepatitis C HIV/AIDS HTN TOBACCO USE Schizophrenia-Paranoid Right wrist nodule PLAN No change in management from medical standpoint Recommend outpatient evaluation of the right wrist nodule. May require imaging study or some form of a biopsy. Patient states is nontender and none mobile. And he has been present for a few weeks. No change in medical management at this time Continue with plan as outlined by psychiatry Increase metformin to 850mg BID Check renal function in am continue supportive care Resume home meds ACCUCHECKS Discussed with Nursing staff to ensure resumption of the HIV/AIDS medications Counselling on Tobacco use discussed in detail for 15 mins, risk associated with Tobacco use discussed in detail and she verbalized understanding DVT/GI prophy History Interval history: No acute complaints. Paitent very happy to be discharged. Hospitalist Physical - Physical exam Narrative exam: VITAL SIGNS: Reviewed. GENERAL: The patient appears normally developed, Vital signs as documented. HEAD: No signs of head trauma. EYES: Pupils are equal. Extraocular motions intact. EARS: Hearing grossly intact. MOUTH: Oropharynx is normal. NECK: No adenopathy, no JVD. CHEST: Chest with clear breath sounds bilaterally. No wheezes, rales, or rhonchi. CARDIAC: Regular rate and rhythm. S1 and S2, without murmurs, gallops, or rubs. VASCULAR: No Edema. Peripheral pulses normal and equal in all extremities. ABDOMEN: Soft, non tender and non distended. No rebound or guarding, and no masses palpated. Bowel Sounds normal. MUSCULOSKELETAL: Soft nodule right dorsum area of the wrist good range of motion of all major joints. Extremities without clubbing, cyanosis or edema. NEUROLOGIC EXAM: Alert and oriented x 3 No focal sensory or strength deficits. Speech normal. Follows commands. PSYCHIATRIC: Mood normal. SKIN: detail exam as documented in skin assessment - Constitutional Vitals: Temp Pulse Resp BP Pulse Ox 98.1 F 52 L 18 128/73 98 09/30/21 07:36 09/30/21 07:36 09/30/21 07:36 09/30/21 07:36 09/30/21 07:36 General appearance: Present: no acute distress, well-nourished. Absent: mild distress, severe distress Results - Labs CBC & Chem 7: 09/23/21 07:09 09/28/21 05:45 Labs: Laboratory Last Values WBC 6.5 K/mm3 (4.5-11.0) 09/23/21 07:09 RBC 5.00 M/mm3 (3.65-5.03) 09/23/21 07:09 Hgb 13.5 gm/dl (10.1-14.3) 09/23/21 07:09 Hct 42.2 % (30.3-42.9) 09/23/21 07:09 MCV 84 fl (79-97) 09/23/21 07:09 MCH 27 pg (28-32) L 09/23/21 07:09 MCHC 32 % (30-34) 09/23/21 07:09 RDW 16.2 % (13.2-15.2) H 09/23/21 07:09 Plt Count 297 K/mm3 (140-440) 09/23/21 07:09 Lymph % (Auto) 36.9 % (13.4-35.0) H 09/23/21 07:09 [place] % (Auto) 10.0 % (0.0-7.3) H 09/23/21 07:09 Eos % (Auto) 1.4 % (0.0-4.3) 09/23/21 07:09 Baso % (Auto) 0.8 % (0.0-1.8) 09/23/21 07:09 Lymph # (Auto) 2.4 K/mm3 (1.2-5.4) 09/23/21 07:09 [place] # (Auto) 0.7 K/mm3 (0.0-0.8) 09/23/21 07:09 Eos # (Auto) 0.1 K/mm3 (0.0-0.4) 09/23/21 07:09 Baso # (Auto) 0.1 K/mm3 (0.0-0.1) 09/23/21 07:09 Seg Neutrophils % 50.9 % (40.0-70.0) 09/23/21 07:09 Seg Neutrophils # 3.3 K/mm3 (1.8-7.7) 09/23/21 07:09 Sodium 135 mmol/L (137-145) L 09/28/21 05:45 Potassium 4.1 mmol/L (3.6-5.0) 09/28/21 05:45 Chloride 104.2 mmol/L (98-107) 09/28/21 05:45 Carbon Dioxide 22 mmol/L (22-30) 09/28/21 05:45 Anion Gap 13 mmol/L 09/28/21 05:45 BUN 15 mg/dL (7-17) 09/28/21 05:45 Creatinine 0.6 mg/dL (0.6-1.2) 09/28/21 05:45 Estimated GFR > 60 ml/min 09/28/21 05:45 BUN/Creatinine Ratio 25 % 09/28/21 05:45 Glucose 173 mg/dL (65-100) H 09/28/21 05:45 POC Glucose 162 mg/dL (70-105) H 09/30/21 06:10 Hemoglobin A1c 8.4 % (4-6) H 09/23/21 07:09 Calcium 9.4 mg/dL (8.4-10.2) 09/28/21 05:45 Total Bilirubin 0.30 mg/dL (0.1-1.2) 09/23/21 07:09 AST 14 units/L (5-40) 09/23/21 07:09 ALT 16 units/L (7-56) 09/23/21 07:09 Alkaline Phosphatase 153 units/L (35-129) H 09/23/21 07:09 Total Protein 7.6 g/dL (6.3-8.2) 09/23/21 07:09 Albumin 4.0 g/dL (3.9-5) 09/23/21 07:09 Albumin/Globulin Ratio 1.1 % 09/23/21 07:09 Triglycerides 146 mg/dL (2-149) 09/23/21 07:09 Cholesterol 186 mg/dL (50-199) 09/23/21 07:09 LDL Cholesterol Direct 113 mg/dL (50-130) 09/23/21 07:09 HDL Cholesterol 43 mg/dL (40-59) 09/23/21 07:09 Cholesterol/HDL Ratio 4.32 % 09/23/21 07:09 TSH 3.020 mlU/mL (0.270-4.200) 09/23/21 07:09 Aguiar/IV: Voiding Method Toilet Active Medications - Current Medications Current Medications: Generic Name Dose Route Start Last Admin Trade Name Marcialq PRN Reason Stop Dose Admin Abacavir Sulfate 600 mg 09/23/21 14:00 09/29/21 11:14 Abacavir 300 Mg Tab PO Not Given DAILY [facility] Amlodipine Besylate 10 mg 09/23/21 11:00 09/29/21 11:38 Amlodipine 10 Mg Tab PO 10 mg DAILY [facility] Administration Aripiprazole 15 mg 09/24/21 11:30 09/29/21 11:37 Aripiprazole 15 Mg Tab PO 15 mg QDAY [facility] Administration Aspirin 81 mg 09/23/21 11:00 09/29/21 11:38 Aspirin Ec 81 Mg Tab PO 81 mg QDAY [facility] Administration Atorvastatin Calcium 20 mg 09/23/21 22:00 09/29/21 21:24 Atorvastatin 20 Mg Tab PO 20 mg QHS [facility] Administration Benztropine Mesylate 0.5 mg 09/24/21 11:00 09/29/21 21:24 Benztropine 0.5 Mg Tab PO 0.5 mg BID [facility] Administration Dolutegravir Sodium 50 mg 09/23/21 14:00 09/29/21 11:39 Dolutegravir 50 Mg Tab PO 50 mg DAILY [facility] Administration Lamivudine 300 mg 09/23/21 14:00 09/29/21 11:36 Lamivudine 150 Mg Tab PO 300 mg DAILY [facility] Administration Metformin HCl 850 mg 09/27/21 08:00 09/29/21 18:12 Metformin 850 Mg Tab PO 850 mg BIDDIAB [facility] Administration Pantoprazole Sodium 40 mg 09/23/21 11:00 09/29/21 11:39 Pantoprazole 40 Mg Tab PO 40 mg QDAY [facility] Administration Trazodone HCl 100 mg 09/23/21 22:00 09/29/21 21:27 Trazodone 100 Mg Tab PO Not Given QHS [facility]
--- NOTE | 2021-09-30 09:04 | Discharge Summary ---
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 The patients mood, cognition, behavior, motivation, compliance to treatment and appreciation on family/social support are improved and stabilized. At the time of discharge, the patient had no suicidal ideas, no homicidal ideas, no aggressive thoughts, no endangering behavior and no debilitating adverse effects. The patient agreed on the treatment plan, understood the risk, benefit, alternative treatment, potential consequence of no treatment, and gave informed consent. Progress Note: 09/29: The patient was seen today. The patient reports doing alright. She reports sleep and appetite as good. She denies SI/HI and denies hallucinations. No changes made today. 09/28:The patient was seen today. She is calm and cooperative. The patient reports doing well. She reports sleep and appetite as good. She denies SI/HI and denies hallucinations. No changes made today. 09/27:The patient was seen today. The patient reports doing well. She reports sleep and appetite as good. She denies SI/HI and denies hallucinations. No changes made today. 09/26:The patient was seen today. She reports doing well and mood is good. She is focused on discharge. She denies SI/HI and denies hallucinations. No changes made today 09/25: The patient was seen today. She says she's feeling better and "blessed." She denies SI/HI or hallucinations. She is expressing feeling ready to go home. The patient will discharge once her outpatient resources are in place to ensure continuity of her mental wellness. Disposition: HOME / SELF CARE / HOMELESS Allergies/Adverse Reactions: Allergies fluphenazine [From Prolixin] Allergy (Verified 09/23/21 03:50) Unknown haloperidol [From Haldol] Allergy (Verified 09/23/21 03:50) Unknown metronidazole [From Flagyl] Allergy (Verified 09/23/21 03:50) Unknown Penicillins Allergy (Verified 09/23/21 03:50) Unknown Vital Signs: Last Vital Signs Temp 98.1 F 09/30/21 07:36 Pulse 52 L 09/30/21 07:36 Resp 18 09/30/21 07:36 BP 128/73 09/30/21 07:36 Pulse Ox 98 09/30/21 07:36 Last Lab: Laboratory Last Values WBC 6.5 K/mm3 (4.5-11.0) 09/23/21 07:09 RBC 5.00 M/mm3 (3.65-5.03) 09/23/21 07:09 Hgb 13.5 gm/dl (10.1-14.3) 09/23/21 07:09 Hct 42.2 % (30.3-42.9) 09/23/21 07:09 MCV 84 fl (79-97) 09/23/21 07:09 MCH 27 pg (28-32) L 09/23/21 07:09 MCHC 32 % (30-34) 09/23/21 07:09 RDW 16.2 % (13.2-15.2) H 09/23/21 07:09 Plt Count 297 K/mm3 (140-440) 09/23/21 07:09 Lymph % (Auto) 36.9 % (13.4-35.0) H 09/23/21 07:09 [place] % (Auto) 10.0 % (0.0-7.3) H 09/23/21 07:09 Eos % (Auto) 1.4 % (0.0-4.3) 09/23/21 07:09 Baso % (Auto) 0.8 % (0.0-1.8) 09/23/21 07:09 Lymph # (Auto) 2.4 K/mm3 (1.2-5.4) 09/23/21 07:09 [place] # (Auto) 0.7 K/mm3 (0.0-0.8) 09/23/21 07:09 Eos # (Auto) 0.1 K/mm3 (0.0-0.4) 09/23/21 07:09 Baso # (Auto) 0.1 K/mm3 (0.0-0.1) 09/23/21 07:09 Seg Neutrophils % 50.9 % (40.0-70.0) 09/23/21 07:09 Seg Neutrophils # 3.3 K/mm3 (1.8-7.7) 09/23/21 07:09 Sodium 135 mmol/L (137-145) L 09/28/21 05:45 Potassium 4.1 mmol/L (3.6-5.0) 09/28/21 05:45 Chloride 104.2 mmol/L (98-107) 09/28/21 05:45 Carbon Dioxide 22 mmol/L (22-30) 09/28/21 05:45 Anion Gap 13 mmol/L 09/28/21 05:45 BUN 15 mg/dL (7-17) 09/28/21 05:45 Creatinine 0.6 mg/dL (0.6-1.2) 09/28/21 05:45 Estimated GFR > 60 ml/min 09/28/21 05:45 BUN/Creatinine Ratio 25 % 09/28/21 05:45 Glucose 173 mg/dL (65-100) H 09/28/21 05:45 POC Glucose 162 mg/dL (70-105) H 09/30/21 06:10 Hemoglobin A1c 8.4 % (4-6) H 09/23/21 07:09 Calcium 9.4 mg/dL (8.4-10.2) 09/28/21 05:45 Total Bilirubin 0.30 mg/dL (0.1-1.2) 09/23/21 07:09 AST 14 units/L (5-40) 09/23/21 07:09 ALT 16 units/L (7-56) 09/23/21 07:09 Alkaline Phosphatase 153 units/L (35-129) H 09/23/21 07:09 Total Protein 7.6 g/dL (6.3-8.2) 09/23/21 07:09 Albumin 4.0 g/dL (3.9-5) 09/23/21 07:09 Albumin/Globulin Ratio 1.1 % 09/23/21 07:09 Triglycerides 146 mg/dL (2-149) 09/23/21 07:09 Cholesterol 186 mg/dL (50-199) 09/23/21 07:09 LDL Cholesterol Direct 113 mg/dL (50-130) 09/23/21 07:09 HDL Cholesterol 43 mg/dL (40-59) 09/23/21 07:09 Cholesterol/HDL Ratio 4.32 % 09/23/21 07:09 TSH 3.020 mlU/mL (0.270-4.200) 09/23/21 07:09 Core Measure Documentation - Palliative Care Palliative Care/ Comfort Measures: Not Applicable - Core Measures Any of the following diagnoses?: none - VTE Discharge Requirements Deep Vein Thrombosis/Pulmonary Embolism Present on Admission: No Exam - Constitutional Vitals: Temp Pulse Resp BP Pulse Ox 98.1 F 52 L 18 128/73 98 09/30/21 07:36 09/30/21 07:36 09/30/21 07:36 09/30/21 07:36 09/30/21 07:36 Plan Activity: advance as tolerated Weight Bearing Status: Weight Bear as Tolerated Care Plan Goals: Maintain good and stable mental health. Plan of Treatment: The patient should be compliant with medications, not to use drugs and not to drink alcohol.The patient understands that if suicidal ideas, homicidal ideas, or any endangering thoughts/behavior arise, they should immediately seek for emergent assistance including but not limited to crisis hot line and emergency room. Follow up with outpatient Psychiatrist and PCP within 7 - 14 days of discharge. Ensure outpatient primary care doctor evaluates nodule on the right wrist Follow up with: PRIMARY CARE,MD [Primary Care Provider] - 7 Days Prescriptions: traZODone [Desyrel] 100 mg PO QHS 30 Days #30 tablet ARIPiprazole [Abilify TAB] 15 mg PO QDAY 30 Days #30 tablet Benztropine [Cogentin] 0.5 mg PO BID 30 Days #60 tablet
[2021-09-30] MEDS: DOLUTEGRAVIR 50 MG TAB PO SCH (12:06)
[2021-09-30] MEDS: ARIPiprazole 15 MG TAB PO SCH (12:06)
[2021-09-30] MEDS: ASPIRIN EC 81 MG TAB PO SCH (12:06)
[2021-09-30] MEDS: PANTOPRAZOLE 40 MG TAB PO SCH (12:06)
[2021-09-30] MEDS: ABACAVIR 300 MG TAB PO SCH (12:06)
[2021-09-30] MEDS: BENZTROPINE 0.5 MG TAB PO SCH (12:07)
[2021-09-30] MEDS: amLODIPine 10 MG TAB PO SCH (12:07)
[2021-09-30] MEDS: metFORMIN 850 MG TAB PO SCH (12:07)
[2021-10-01] MEDS ORDERED: ABACAVIR 300 MG TAB PO SCH (10:00)
== END 2021-09-30 13:05 | disposition home or self-care (01) | DRG 885 ==
LOC: UNDOADMIN 16:34 → 3A 16:34 → 5A 09-23 03:45
PROVIDERS: ADMIT Psychiatry & Neurology Psychiatry; ATTEND Psychiatry & Neurology Psychiatry
DX: F20.0 Paranoid schizophrenia (principal); F31.9 Bipolar disorder, unspecified; E11.9 Type 2 diabetes mellitus without complications; B19.20 Unspecified viral hepatitis C without hepatic coma; I10 Essential (primary) hypertension; F41.9 Anxiety disorder, unspecified; E78.5 Hyperlipidemia, unspecified; B20 Human immunodeficiency virus [HIV] disease; R45.851 Suicidal ideations; Z88.0 Allergy status to penicillin; Z79.899 Other long term (current) drug therapy; Z88.8 Allergy status to other drugs, medicaments and biological substances; Z88.1 Allergy status to other antibiotic agents
CPT/HCPCS: 36415; 80048; 80053; 80061; 82962; 83036; 84443; 85025; G0378